=== PATIENT | male | born 1950 | race Native Hawaiian/Other Pacific Islander ===

== ENCOUNTER 2019-11-21 15:28 | Inpatient (IN) | payer MEDICARE, SELFPAY ==
[2019-11-21 15:30] VITALS: BP 171/84; PULSE 100; RESP 18; TEMP 37.1; O2SAT 98; BMI 25.7
[2019-11-21 16:00] VITALS: BP 148/81; PULSE 97; RESP 20; O2SAT 100
--- NOTE | 2019-11-21 16:00 | DI.RAD.S_ITS ---
PROCEDURE: XR FOOT RT MIN 3V INDICATIONS: infection right foot, open area near 4/5 joint. TECHNIQUE: 3 views of the foot were acquired. COMPARISON: None. FINDINGS: Bones: No fractures or dislocations. No suspicious bony lesions. No gross bony erosive changes are seen. Soft tissues: No tibiotalar joint effusion. Achilles tendon appears normal. IMPRESSION: No acute right foot fracture or dislocation. No definite radiographic evidence of osteomyelitis in right foot. No subcutaneous emphysema is seen. Dictated by: Robert Corey M.D. on 11/21/2019 at 16:21 Approved by: Robert Corey M.D. on 11/21/2019 at 16:22
[2019-11-21 16:07] LABS: Add Manual Diff / Slide Review NO; Basophils Absolute Auto 100 /uL (0-100); Basophils Percent Auto 0.6 % (0-2); Eosinophils Absolute Auto 400 /uL (0-450); Eosinophils Percent Auto 2.3 % (2-4); Hematocrit 39.5 % (41-53); Hemoglobin 13.7 g/dL (13.5-17.5); Lymphocytes Absolute Auto 1600 /uL (1100-4500); Lymphocytes Percent Auto 10.6 % (25-40); Mean Corpuscular HGB Conc 34.6 % (30-36); Mean Corpuscular Hemoglobin 30.3 PG (26-34); Mean Corpuscular Volume 87.8 fL (80-100); Monocytes Absolute Auto 2000 /uL (0-900); Monocytes Percent Auto 12.7 % (3-14); Neutrophils Absolute Auto 11400 /uL (1500-7000); Neutrophils Percent Auto 73.8 % (50-75); Platelet Count 274 X10^3/uL (150-400); Red Cell Distribution Width 13.5 % (11.6-14.8); White Blood Cell Count 15.5 X10^3/uL (4.5-11.0)
--- NOTE | 2019-11-21 16:07 | PC.NURSE ---
Pulse obtained right foot with doppler 85 bpm
[2019-11-21 16:10] LABS: INR 1.3 (0.9-1.3); Prothrombin Time 14.5 SECONDS (10.1-12.7)
--- NOTE | 2019-11-21 16:10 | PC.NURSE ---
Significant swelling to right foot up into ankle. Hot/red foot. Patient has an small wound to lateral aspect of fifth toe, wound to top of foot between 4th and 5th toe. reports scratching area as well as being stepped on while on the plane thursday. 85bpm pedal pulse
[2019-11-21 16:12] LABS: PTT Partial Thromboplastin Tim 32 SECONDS (26.4-36.2)
[2019-11-21 16:19] LABS: Lactate (Lactic Acid) 1.3 mmol/L (0.7-2.1)
[2019-11-21 16:20] LABS: Alanine Aminotransferase 46 IU/L (<50); Albumin 4.2 g/dL (3.5-5.0); Alkaline Phosphatase 128 U/L (38-126); Aspartate Aminotransferase 60 IU/L (17-59); BUN Creatinine Ratio 15.6 (6-22); Bilirubin Total 0.9 mg/dL (0.2-1.3); Blood Urea Nitrogen 14 mg/dL (9-20); Calcium 9.3 mg/dL (8.4-10.2); Carbon Dioxide 26 mmol/L (22-32); Chloride 101 mmol/L (98-107); Estimated Glomerular Filt Rate > 60.0 mL/min (>60); Globulin 4.2 g/dL (1.7-4.1); Glucose 132 mg/dL (80-110); HEMOLYSIS 16 (0-50); Lipase 135 U/L (23-300); Potassium 3.6 mmol/L (3.4-5.1); Sodium 138 mmol/L (137-145); Total Protein 8.4 g/dL (6.3-8.2)
[2019-11-21 16:35] LABS: C-Reactive Protein Quant 22.3 mg/dL (<1.0)
[2019-11-21] MEDS: SODIUM CHLORIDE 0.9% 1,000 ML 1000 ML IV (16:39)
--- NOTE | 2019-11-21 16:41 | ED_ITS ---
HPI - Wound/Laceration <PABLO Uribe - Last Filed: 11/21/19 20:18> General Chief Complaint: Wound/Laceration Stated Complaint: SWELLING OF FEET Time Seen by Provider: 11/21/19 15:41 Source: patient and family Mode of arrival: Wheelchair History of Present Illness HPI narrative: 69-year-old male presents to emergency department complaining of right foot swelling, redness, and a wound since Thursday. He states he was in the [facility] and had a foot massage on (patient states they did not cut his nails), Thursday morning he woke up noticing the outer aspect of his right foot was swollen and painful. He thought that he was strain to get gout so he started to take his medication. While he was on the plane he noticed that his foot continued to swell and his toes were rubbing against his slipper, after landing he noticed increased swelling, redness, and a wound to his foot. The wound has been increasingly worse over the past day. He denies any fevers, chills, nausea, vomiting, calf pain, pain in his heel, bug bites, or other concerns. He has not had this happen in the past. He denies any allergies or other medical history other than gout. Denies diabetes. Related Data Home Medications Medication Instructions Recorded Confirmed aspirin 81 mg PO DAILY #0 07/12/06 11/21/19 amlodipine 10 mg PO DAILY 11/21/19 11/21/19 ascorbic acid (vitamin C) 1 tab PO DAILY 11/21/19 11/21/19 vitamin B complex 1 cap PO DAILY 11/21/19 11/21/19 vitamin E 1 cap PO DAILY 11/21/19 11/21/19 Allergies Allergy/AdvReac Type Severity Reaction Status Date / Time No Known Drug Allergies Allergy Verified 11/21/19 16:39 Review of Systems <PABLO Uribe - Last Filed: 11/21/19 20:18> Review of Systems Narrative: REVIEW OF SYSTEMS: GENERAL: Denies fever or chills. HENT: No head trauma. EYES: No double vision or vision loss. CARDIOVASCULAR: No chest pain or syncope. RESPIRATORY: No shortness of breath or cough. GASTROINTESTINAL: No nausea, vomiting, diarrhea, or constipation. GENITOURINARY: No flank pain or dysuria. MUSCULOSKELETAL: Complains of foot pain, see HPI. INTEGUMENTARY: No rash, lesions, or pruritus. NEURO: Complains of increasing redness, swelling, and a wound to right foot. See HPI. PSYCH: No behavior or mood changes. Patient History <PABLO Uribe - Last Filed: 11/21/19 20:18> Medical History Essential hypertension (Chronic) Gout (Acute) Gout (Chronic) History of CVA (cerebrovascular accident) (Acute) Family History Mother Diabetes mellitus Sister Diabetes mellitus Father No significant past medical history Social History household members: family Smoking Status: Never smoker alcohol intake: never Smoking Status: Never smoker alcohol intake frequency: 0-2 drinks per day Substance Use Type: does not use Exam <PABLO Uribe - Last Filed: 11/21/19 20:18> Initial Vital Signs Initial Vital Signs: Vital Signs Temperature 98.8 F 11/21/19 15:30 Pulse Rate 100 H 11/21/19 15:30 Respiratory Rate 18 11/21/19 15:30 Blood Pressure 171/84 H 11/21/19 15:30 Pulse Oximetry 98 11/21/19 15:30 PHYSICAL EXAMINATION: GENERAL: Well groomed, alert, and cooperative. Answers questions promptly and appropriately. Vital signs noted. HENT: Normocephalic, atraumatic. EYES: Symmetrical, sclera white, no periorbital swelling. CARDIOVASCULAR: S1 and S2 sounds normal. Regular rate and rhythm, no murmurs, clicks, or bruits. No pedal edema. RESPIRATORY: Normal respiratory rate, trachea midline, airway patent. No stridor, nasal flaring or accessory muscle use. Lungs are clear in all heard. MUSCULOSKELETAL: Significant erythema and swelling noted to right lateral aspect of foot, there is approximately a 3 cm x 3 cm area of ulceration with white crusting. Peeling/blistering skin noted to the surrounding area. Increasing temp and pain with palp. Pedal pulses 2+ and equal bilaterally. Normal gait and coordination. Equal tone and mass bilaterally. EXTREMITIES: CMS intact. Pedal pulses 2+ and equal bilaterally. SKIN: Warm, dry, soft, appropriate color for ethnicity. No lesions, rashes, or wounds. NEURO: Alert and Oriented X 3. No sensory deficits. PSYCH: Appropriate affect and mood. <Juana Meehan DO - Last Filed: 11/22/19 20:29> Initial Vital Signs Initial Vital Signs: Vital Signs Temperature 98.8 F 11/21/19 15:30 Pulse Rate 100 H 11/21/19 15:30 Respiratory Rate 18 11/21/19 15:30 Blood Pressure 171/84 H 11/21/19 15:30 Pulse Oximetry 98 11/21/19 15:30 Scores <PABLO Uribe - Last Filed: 11/21/19 20:18> qSOFA Altered Mental Status (GCS <15): No Respiratory rate greater than/equal to 22: No Systolic blood pressure less than or equal to 100: No qSOFA Total: 0 0-1 Not High Risk 1-3 High risk SOFA Platelets: >= 150 Bilirubin: < 1.2 mg/dL Hypotension: MAP >= 70 mmHg Eliane Coma Scale: 15 Renal: < 1.2 mg/dL Course <PABLO Uribe - Last Filed: 11/21/19 20:18> Course Course Narrative: Patient was given Toradol for pain, this improved patient comfort. 2 L of normal saline ordered for sepsis protocol. Orders Ordered: Acetaminophen (Tylenol) 650 mg PO Q6HR PRN PRN Reason: Fever/Mild Pain (1-3) Last Admin: 11/21/19 21:14 Dose: 650 mg Documented by: HANNAH Amlodipine Besylate (Norvasc) 10 mg PO DAILY [facility] Last Admin: 11/22/19 10:14 Dose: 10 mg Documented by: SUMMER Aspirin (Aspirin Ec) 81 mg PO DAILY [facility] Last Admin: 11/22/19 10:13 Dose: 81 mg Documented by: SUMMER Enoxaparin Sodium (Lovenox) 40 mg SUBCUT DAILY [facility] Last Admin: 11/22/19 10:17 Dose: 40 mg Documented by: SUMMER Ceftriaxone Sodium/Dextrose (Rocephin) 2 gm in 50 mls @ 100 mls/hr IV Q24H [facility] Last Infusion: 11/22/19 14:05 Dose: 0 mls/hr Documented by: Admin: 11/22/19 10:13 Dose: 100 mls/hr Documented by: SUMMER Vancomycin HCl (Vancomycin) 1,000 mg in 200 mls @ 200 mls/hr IV Q12H [facility] Ketorolac Tromethamine (Toradol) 15 mg IV Q6H PRN PRN Reason: Pain, Moderate (4-6) Stop: 11/27/19 19:23 Morphine Sulfate (Morphine) 2 mg IV Q4HR PRN PRN Reason: Pain, Moderate (4-6) Last Admin: 11/22/19 17:44 Dose: 2 mg Documented by: YESSY Morphine Sulfate (Morphine) 1 mg IV Q4HR PRN PRN Reason: Pain, Moderate (4-6) Ondansetron HCl (Zofran) 4 mg IV Q6HR [facility] Last Admin: 11/22/19 18:43 Dose: Not Given Documented by: Admin: 11/22/19 14:05 Dose: Not Given Documented by: Admin: 11/22/19 06:04 Dose: Not Given Documented by: Admin: 11/22/19 00:00 Dose: Not Given Documented by: NANCY Vancomycin HCl (Vancomycin Trough) 1 request MISC NOW ONE Stop: 11/23/19 22:31 Discontinued Medications Sodium Chloride (Normal Saline 0.9%) 1,000 mls @ 1,000 mls/hr IV BOLUS ONE Stop: 11/21/19 16:58 Last Infusion: 11/21/19 17:53 Dose: 0 mls/hr Documented by: Admin: 11/21/19 16:39 Dose: 1,000 mls/hr Documented by: ADITYA Sodium Chloride (Normal Saline 0.9%) 1,000 mls @ 1,000 mls/hr IV BOLUS ONE Stop: 11/21/19 17:32 Last Admin: 11/21/19 18:24 Dose: Not Given Documented by: JULIENNE Vancomycin HCl (Vancomycin) 1,000 mg in 200 mls @ 200 mls/hr IV NOW ONE Stop: 11/21/19 17:38 Last Infusion: 11/21/19 17:53 Dose: 0 mls/hr Documented by: Admin: 11/21/19 16:47 Dose: 200 mls/hr Documented by: ADITYA Sodium Chloride (Normal Saline 0.45%) 1,000 mls @ 100 mls/hr IV CONT [facility] Stop: 11/22/19 06:29 Last Admin: 11/21/19 21:19 Dose: 100 mls/hr Documented by: HANNAH Ceftriaxone Sodium/Dextrose (Rocephin) 1 gm in 50 mls @ 100 mls/hr IV Q24H [facility] Last Admin: 11/21/19 21:53 Dose: Not Given Documented by: HANNAH Cefazolin Sodium/Dextrose (Ancef) 1 gm in 50 mls @ 200 mls/hr IV Q6H [facility] Last Infusion: 11/22/19 06:20 Dose: 0 mls/hr Documented by: Admin: 11/22/19 06:04 Dose: 200 mls/hr Documented by: Infusion: 11/22/19 00:05 Dose: 0 mls/hr Documented by: Admin: 11/21/19 23:49 Dose: 200 mls/hr Documented by: NANCY Vancomycin HCl (Vancomycin) 1,000 mg in 200 mls @ 200 mls/hr IV Q12H [facility] Last Infusion: 11/22/19 14:05 Dose: 0 mls/hr Documented by: Admin: 11/22/19 11:06 Dose: 200 mls/hr Documented by: SUMMER Influenza Virus Vaccine (Flu Vaccine) 0.5 ml IM .ONCE ONE Stop: 11/21/19 19:30 Last Admin: 11/21/19 21:16 Dose: 0.5 ml Documented by: HANNAH Ketorolac Tromethamine (Toradol) 30 mg IV NOW ONE Stop: 11/21/19 16:45 Last Admin: 11/21/19 16:47 Dose: 30 mg Documented by: ADITYA Vancomycin HCl (Vancomycin Per Pharmacy) 1 [place] [facility] [place] Stop: 11/22/19 07:25 Last Admin: 11/22/19 16:05 Dose: Not Given Documented by: HANNAH Consultations Consultation #1: Patient staffed with Dr. Meehan. Consultation #2: Spoke with Dr. Tsang who accepts patient for inpatient treatment, EKG requested and ordered. Vital Signs Vital signs: Vital Signs - 8 hr 11/21/19 15:30 11/21/19 16:00 Temperature 98.8 F Pulse Rate 100 H 97 H Respiratory Rate 18 20 Blood Pressure 171/84 H Blood Pressure [Left Arm] 148/81 H Pulse Oximetry 98 100 <Juana Meehan, - Last Filed: 11/22/19 20:29> Orders Ordered: Acetaminophen (Tylenol) 650 mg PO Q6HR PRN PRN Reason: Fever/Mild Pain (1-3) Last Admin: 11/21/19 21:14 Dose: 650 mg Documented by: HANNAH Amlodipine Besylate (Norvasc) 10 mg PO DAILY [facility] Last Admin: 11/22/19 10:14 Dose: 10 mg Documented by: SUMMER Aspirin (Aspirin Ec) 81 mg PO DAILY [facility] Last Admin: 11/22/19 10:13 Dose: 81 mg Documented by: SUMMER Enoxaparin Sodium (Lovenox) 40 mg SUBCUT DAILY [facility] Last Admin: 11/22/19 10:17 Dose: 40 mg Documented by: SUMMER Ceftriaxone Sodium/Dextrose (Rocephin) 2 gm in 50 mls @ 100 mls/hr IV Q24H [facility] Last Infusion: 11/22/19 14:05 Dose: 0 mls/hr Documented by: Admin: 11/22/19 10:13 Dose: 100 mls/hr Documented by: SUMMER Vancomycin HCl (Vancomycin) 1,000 mg in 200 mls @ 200 mls/hr IV Q12H [facility] Ketorolac Tromethamine (Toradol) 15 mg IV Q6H PRN PRN Reason: Pain, Moderate (4-6) Stop: 11/27/19 19:23 Morphine Sulfate (Morphine) 2 mg IV Q4HR PRN PRN Reason: Pain, Moderate (4-6) Last Admin: 11/22/19 17:44 Dose: 2 mg Documented by: YESSY Morphine Sulfate (Morphine) 1 mg IV Q4HR PRN PRN Reason: Pain, Moderate (4-6) Ondansetron HCl (Zofran) 4 mg IV Q6HR [facility] Last Admin: 11/22/19 18:43 Dose: Not Given Documented by: Admin: 11/22/19 14:05 Dose: Not Given Documented by: Admin: 11/22/19 06:04 Dose: Not Given Documented by: Admin: 11/22/19 00:00 Dose: Not Given Documented by: NANCY Vancomycin HCl (Vancomycin Trough) 1 [place] [facility] [place] Stop: 11/23/19 22:31 Discontinued Medications Sodium Chloride (Normal Saline 0.9%) 1,000 mls @ 1,000 mls/hr IV BOLUS ONE Stop: 11/21/19 16:58 Last Infusion: 11/21/19 17:53 Dose: 0 mls/hr Documented by: Admin: 11/21/19 16:39 Dose: 1,000 mls/hr Documented by: ADITYA Sodium Chloride (Normal Saline 0.9%) 1,000 mls @ 1,000 mls/hr IV BOLUS ONE Stop: 11/21/19 17:32 Last Admin: 11/21/19 18:24 Dose: Not Given Documented by: JULIENNE Vancomycin HCl (Vancomycin) 1,000 mg in 200 mls @ 200 mls/hr IV NOW ONE Stop: 11/21/19 17:38 Last Infusion: 11/21/19 17:53 Dose: 0 mls/hr Documented by: Admin: 11/21/19 16:47 Dose: 200 mls/hr Documented by: ADITYA Sodium Chloride (Normal Saline 0.45%) 1,000 mls @ 100 mls/hr IV CONT [facility] Stop: 11/22/19 06:29 Last Admin: 11/21/19 21:19 Dose: 100 mls/hr Documented by: HANNAH Ceftriaxone Sodium/Dextrose (Rocephin) 1 gm in 50 mls @ 100 mls/hr IV Q24H [facility] Last Admin: 11/21/19 21:53 Dose: Not Given Documented by: HANNAH Cefazolin Sodium/Dextrose (Ancef) 1 gm in 50 mls @ 200 mls/hr IV Q6H [facility] Last Infusion: 11/22/19 06:20 Dose: 0 mls/hr Documented by: Admin: 11/22/19 06:04 Dose: 200 mls/hr Documented by: Infusion: 11/22/19 00:05 Dose: 0 mls/hr Documented by: Admin: 11/21/19 23:49 Dose: 200 mls/hr Documented by: NANCY Vancomycin HCl (Vancomycin) 1,000 mg in 200 mls @ 200 mls/hr IV Q12H [facility] Last Infusion: 11/22/19 14:05 Dose: 0 mls/hr Documented by: Admin: 11/22/19 11:06 Dose: 200 mls/hr Documented by: SUMMER Influenza Virus Vaccine (Flu Vaccine) 0.5 ml IM .ONCE ONE Stop: 11/21/19 19:30 Last Admin: 11/21/19 21:16 Dose: 0.5 ml Documented by: HANNAH Ketorolac Tromethamine (Toradol) 30 mg IV NOW ONE Stop: 11/21/19 16:45 Last Admin: 11/21/19 16:47 Dose: 30 mg Documented by: ADITYA Vancomycin HCl (Vancomycin Per Pharmacy) 1 request MISC NOW ONE Stop: 11/22/19 07:25 Last Admin: 11/22/19 16:05 Dose: Not Given Documented by: HANNAH Vital Signs Vital signs: Vital Signs - 8 hr 11/21/19 15:30 11/21/19 16:00 Temperature 98.8 F Pulse Rate 100 H 97 H Respiratory Rate 18 20 Blood Pressure 171/84 H Blood Pressure [Left Arm] 148/81 H Pulse Oximetry 98 100 MDM - Wound/Laceration <PABLO Uribe - Last Filed: 11/21/19 20:18> Medical Records Attestation: I reviewed the patient's medical records. Lab Data Attestation: I reviewed the patient's lab results. Result diagrams: 11/22/19 05:15 11/22/19 05:15 Labs: Lab Results 11/21/19 11/21/19 11/21/19 Range/Units 15:55 15:55 15:55 WBC 15.5 H (4.5-11.0) X10^3/uL RBC 4.50 (4.5-5.9) X10^6/uL Hgb 13.7 (13.5-17.5) g/dL Hct 39.5 L (41-53) % MCV 87.8 (80-100) fL MCH 30.3 (26-34) PG MCHC 34.6 (30-36) % RDW 13.5 (11.6-14.8) % Plt Count 274 (150-400) X10^3/uL Neut % (Auto) 73.8 (50-75) % Lymph % (Auto) 10.6 L (25-40) % [place] % (Auto) 12.7 (3-14) % Eos % (Auto) 2.3 (2-4) % Baso % (Auto) 0.6 (0-2) % Neut # (Auto) 43846 H (6021-7560) /uL Lymph # (Auto) 1600 (4601-2145) /uL [place] # (Auto) 2000 H (0-900) /uL Eos # (Auto) 400 (0-450) /uL Baso # (Auto) 100 (0-100) /uL ESR (0-15) MM/HR PT 14.5 H (10.1-12.7) SECONDS INR 1.3 (0.9-1.3) APTT 32 (26.4-36.2) SECONDS Sodium (137-145) mmol/L Potassium (3.4-5.1) mmol/L Chloride (98-107) mmol/L Carbon Dioxide (22-32) mmol/L BUN (9-20) mg/dL Creatinine (0.66-1.25) mg/dL Estimated GFR (>60) mL/min BUN/Creatinine Ratio (6-22) Glucose (80-110) mg/dL Hemoglobin A1c (4.0-6.0) % Lactate (0.7-2.1) mmol/L Calcium (8.4-10.2) mg/dL Total Bilirubin (0.2-1.3) mg/dL AST (17-59) IU/L ALT (<50) IU/L Alkaline Phosphatase (38-126) U/L C-Reactive Protein (<1.0) mg/dL Total Protein (6.3-8.2) g/dL Albumin (3.5-5.0) g/dL Globulin (1.7-4.1) g/dL Albumin/Globulin Ratio (1.0-2.8) Lipase (23-300) U/L Procalcitonin 0.30 (<0.5) ng/mL 11/21/19 11/21/19 11/21/19 Range/Units 15:55 15:55 15:55 WBC (4.5-11.0) X10^3/uL RBC (4.5-5.9) X10^6/uL Hgb (13.5-17.5) g/dL Hct (41-53) % MCV (80-100) fL MCH (26-34) PG MCHC (30-36) % RDW (11.6-14.8) % Plt Count (150-400) X10^3/uL Neut % (Auto) (50-75) % Lymph % (Auto) (25-40) % [place] % (Auto) (3-14) % Eos % (Auto) (2-4) % Baso % (Auto) (0-2) % Neut # (Auto) (3470-1768) /uL Lymph # (Auto) (5107-9069) /uL [place] # (Auto) (0-900) /uL Eos # (Auto) (0-450) /uL Baso # (Auto) (0-100) /uL ESR 70 H (0-15) MM/HR PT (10.1-12.7) SECONDS INR (0.9-1.3) APTT (26.4-36.2) SECONDS Sodium 138 (137-145) mmol/L Potassium 3.6 (3.4-5.1) mmol/L Chloride 101 (98-107) mmol/L Carbon Dioxide 26 (22-32) mmol/L BUN 14 (9-20) mg/dL Creatinine 0.90 (0.66-1.25) mg/dL Estimated GFR > 60.0 (>60) mL/min BUN/Creatinine Ratio 15.6 (6-22) Glucose 132 H (80-110) mg/dL Hemoglobin A1c (4.0-6.0) % Lactate 1.3 (0.7-2.1) mmol/L Calcium 9.3 (8.4-10.2) mg/dL Total Bilirubin 0.9 (0.2-1.3) mg/dL AST 60 H (17-59) IU/L ALT 46 (<50) IU/L Alkaline Phosphatase 128 H (38-126) U/L C-Reactive Protein (<1.0) mg/dL Total Protein 8.4 H (6.3-8.2) g/dL Albumin 4.2 (3.5-5.0) g/dL Globulin 4.2 H (1.7-4.1) g/dL Albumin/Globulin Ratio 1.0 (1.0-2.8) Lipase 135 (23-300) U/L Procalcitonin (<0.5) ng/mL 11/21/19 11/21/19 Range/Units 15:55 15:55 WBC (4.5-11.0) X10^3/uL RBC (4.5-5.9) X10^6/uL Hgb (13.5-17.5) g/dL Hct (41-53) % MCV (80-100) fL MCH (26-34) PG MCHC (30-36) % RDW (11.6-14.8) % Plt Count (150-400) X10^3/uL Neut % (Auto) (50-75) % Lymph % (Auto) (25-40) % [place] % (Auto) (3-14) % Eos % (Auto) (2-4) % Baso % (Auto) (0-2) % Neut # (Auto) (7124-3100) /uL Lymph # (Auto) (9339-4817) /uL [place] # (Auto) (0-900) /uL Eos # (Auto) (0-450) /uL Baso # (Auto) (0-100) /uL ESR (0-15) MM/HR PT (10.1-12.7) SECONDS INR (0.9-1.3) APTT (26.4-36.2) SECONDS Sodium (137-145) mmol/L Potassium (3.4-5.1) mmol/L Chloride (98-107) mmol/L Carbon Dioxide (22-32) mmol/L BUN (9-20) mg/dL Creatinine (0.66-1.25) mg/dL Estimated GFR (>60) mL/min BUN/Creatinine Ratio (6-22) Glucose (80-110) mg/dL Hemoglobin A1c 5.3 (4.0-6.0) % Lactate (0.7-2.1) mmol/L Calcium (8.4-10.2) mg/dL Total Bilirubin (0.2-1.3) mg/dL AST (17-59) IU/L ALT (<50) IU/L Alkaline Phosphatase (38-126) U/L C-Reactive Protein 22.3 H (<1.0) mg/dL Total Protein (6.3-8.2) g/dL Albumin (3.5-5.0) g/dL Globulin (1.7-4.1) g/dL Albumin/Globulin Ratio (1.0-2.8) Lipase (23-300) U/L Procalcitonin (<0.5) ng/mL Imaging Data Extremity x-ray #1: Radiologist's Impression: [place] [address] XRay Report Signed Patient: Chidi Correa BMR#: [id number] : 9Acct:[id number] Age/Sex: 69 / MDate of Service: 11/21/19 Loc: ED Accession Number: [id number] Procedure: XR foot RT min 3V Ordering Provider: Mica Chau PROCEDURE: XR FOOT RT MIN 3V INDICATIONS: infection right foot, open area near 4/5 joint. TECHNIQUE: 3 views of the foot were acquired. COMPARISON: None. FINDINGS: Bones: No fractures or dislocations. No suspicious bony lesions. No gross bony erosive changes are seen. Soft tissues: No tibiotalar joint effusion. Achilles tendon appears normal. IMPRESSION: No acute right foot fracture or dislocation. No definite radiographic evidence of osteomyelitis in right foot. No subcutaneous emphysema is seen. Dictated by: Robert Corey M.D. on 11/21/2019 at 16:21 Approved by: Robert Corey M.D. on 11/21/2019 at 16:22 ECG Data Interpretation: Normal sinus rhythm, rate 85, GA interval 137, QTC 412. No ST elevation or ST depression. No ectopy. EKG read by Dr. Meehan per protocol. [facility] Narrative Medical decision making narrative: 69-year-old male with a history of gout presents emergency department with significant cellulitis to right foot and sepsis. Less concern for osteomyelitis due to lack of concerning findings on x-ray. On sure the exact cause of patient's ulcer and initial wound leading to the cellulitis. Differential for initial also includes insect bite, abrasion to foot, undiagnosed diabetes, MRSA. Wound was swabbed and sent to lab, initial Gram stain showed Gram-positive cocci, vancomycin was started. Patient was admitted to Dr. Tsang as inpatient. Patients LRINEC score is 5 indicating low risk for necrotizing fasciitis. <Juana Meehan, DO - Last Filed: 11/22/19 20:29> Lab Data Attestation: I reviewed the patient's lab results. Labs: Lab Results 11/21/19 11/21/19 11/21/19 Range/Units 15:55 15:55 15:55 WBC 15.5 H (4.5-11.0) X10^3/uL RBC 4.50 (4.5-5.9) X10^6/uL Hgb 13.7 (13.5-17.5) g/dL Hct 39.5 L (41-53) % MCV 87.8 (80-100) fL MCH 30.3 (26-34) PG MCHC 34.6 (30-36) % RDW 13.5 (11.6-14.8) % Plt Count 274 (150-400) X10^3/uL Neut % (Auto) 73.8 (50-75) % Lymph % (Auto) 10.6 L (25-40) % [place] % (Auto) 12.7 (3-14) % Eos % (Auto) 2.3 (2-4) % Baso % (Auto) 0.6 (0-2) % Neut # (Auto) 88840 H (1150-6344) /uL Lymph # (Auto) 1600 (6878-8752) /uL [place] # (Auto) 2000 H (0-900) /uL Eos # (Auto) 400 (0-450) /uL Baso # (Auto) 100 (0-100) /uL ESR (0-15) MM/HR PT 14.5 H (10.1-12.7) SECONDS INR 1.3 (0.9-1.3) APTT 32 (26.4-36.2) SECONDS Sodium (137-145) mmol/L Potassium (3.4-5.1) mmol/L Chloride (98-107) mmol/L Carbon Dioxide (22-32) mmol/L BUN (9-20) mg/dL Creatinine (0.66-1.25) mg/dL Estimated GFR (>60) mL/min BUN/Creatinine Ratio (6-22) Glucose (80-110) mg/dL Hemoglobin A1c (4.0-6.0) % Lactate (0.7-2.1) mmol/L Calcium (8.4-10.2) mg/dL Total Bilirubin (0.2-1.3) mg/dL AST (17-59) IU/L ALT (<50) IU/L Alkaline Phosphatase (38-126) U/L C-Reactive Protein (<1.0) mg/dL Total Protein (6.3-8.2) g/dL Albumin (3.5-5.0) g/dL Globulin (1.7-4.1) g/dL Albumin/Globulin Ratio (1.0-2.8) Lipase (23-300) U/L Procalcitonin 0.30 (<0.5) ng/mL 11/21/19 11/21/19 11/21/19 Range/Units 15:55 15:55 15:55 WBC (4.5-11.0) X10^3/uL RBC (4.5-5.9) X10^6/uL Hgb (13.5-17.5) g/dL Hct (41-53) % MCV (80-100) fL MCH (26-34) PG MCHC (30-36) % RDW (11.6-14.8) % Plt Count (150-400) X10^3/uL Neut % (Auto) (50-75) % Lymph % (Auto) (25-40) % [place] % (Auto) (3-14) % Eos % (Auto) (2-4) % Baso % (Auto) (0-2) % Neut # (Auto) (5052-4963) /uL Lymph # (Auto) (6615-5452) /uL [place] # (Auto) (0-900) /uL Eos # (Auto) (0-450) /uL Baso # (Auto) (0-100) /uL ESR 70 H (0-15) MM/HR PT (10.1-12.7) SECONDS INR (0.9-1.3) APTT (26.4-36.2) SECONDS Sodium 138 (137-145) mmol/L Potassium 3.6 (3.4-5.1) mmol/L Chloride 101 (98-107) mmol/L Carbon Dioxide 26 (22-32) mmol/L BUN 14 (9-20) mg/dL Creatinine 0.90 (0.66-1.25) mg/dL Estimated GFR > 60.0 (>60) mL/min BUN/Creatinine Ratio 15.6 (6-22) Glucose 132 H (80-110) mg/dL Hemoglobin A1c (4.0-6.0) % Lactate 1.3 (0.7-2.1) mmol/L Calcium 9.3 (8.4-10.2) mg/dL Total Bilirubin 0.9 (0.2-1.3) mg/dL AST 60 H (17-59) IU/L ALT 46 (<50) IU/L Alkaline Phosphatase 128 H (38-126) U/L C-Reactive Protein (<1.0) mg/dL Total Protein 8.4 H (6.3-8.2) g/dL Albumin 4.2 (3.5-5.0) g/dL Globulin 4.2 H (1.7-4.1) g/dL Albumin/Globulin Ratio 1.0 (1.0-2.8) Lipase 135 (23-300) U/L Procalcitonin (<0.5) ng/mL 11/21/19 11/21/19 Range/Units 15:55 15:55 WBC (4.5-11.0) X10^3/uL RBC (4.5-5.9) X10^6/uL Hgb (13.5-17.5) g/dL Hct (41-53) % MCV (80-100) fL MCH (26-34) PG MCHC (30-36) % RDW (11.6-14.8) % Plt Count (150-400) X10^3/uL Neut % (Auto) (50-75) % Lymph % (Auto) (25-40) % [place] % (Auto) (3-14) % Eos % (Auto) (2-4) % Baso % (Auto) (0-2) % Neut # (Auto) (5075-9098) /uL Lymph # (Auto) (1118-5847) /uL [place] # (Auto) (0-900) /uL Eos # (Auto) (0-450) /uL Baso # (Auto) (0-100) /uL ESR (0-15) MM/HR PT (10.1-12.7) SECONDS INR (0.9-1.3) APTT (26.4-36.2) SECONDS Sodium (137-145) mmol/L Potassium (3.4-5.1) mmol/L Chloride (98-107) mmol/L Carbon Dioxide (22-32) mmol/L BUN (9-20) mg/dL Creatinine (0.66-1.25) mg/dL Estimated GFR (>60) mL/min BUN/Creatinine Ratio (6-22) Glucose (80-110) mg/dL Hemoglobin A1c 5.3 (4.0-6.0) % Lactate (0.7-2.1) mmol/L Calcium (8.4-10.2) mg/dL Total Bilirubin (0.2-1.3) mg/dL AST (17-59) IU/L ALT (<50) IU/L Alkaline Phosphatase (38-126) U/L C-Reactive Protein 22.3 H (<1.0) mg/dL Total Protein (6.3-8.2) g/dL Albumin (3.5-5.0) g/dL Globulin (1.7-4.1) g/dL Albumin/Globulin Ratio (1.0-2.8) Lipase (23-300) U/L Procalcitonin (<0.5) ng/mL ECG Data Attestation: I personally reviewed and interpreted this ECG as follows: Interpretation: Sinus rhythm rate 85 P are 137 QRS 89 and QTC of 412. Nonspecific change. MDM Narrative Medical decision making narrative: Patient was seen by myself patient appears to have open wound with cellulitis. Unclear sick potentially of osteomyelitis but per patient has been a very short onset. He does not have a large fluid collection that appears to be easily drained. Does have quite a bit of swelling ulceration and skin breakdown closed the 5th metatarsal with erythema tracking up the ankle. Patient does meet septic criteria of heart rate initially 100 and white count 15. He has been afebrile in the department. We discussed would be appropriate keep patient for IV antibiotics and close evaluation ESR and CRP are also both elevated. Initial x-ray is negative for any changes to the bone there's no free air. Discharge Plan Departure Patient Disposition: Admitted As Inpatient Clinical Impression: Cellulitis Qualifiers: Site of cellulitis: extremity Site of cellulitis of extremity: lower extremity Laterality: right Qualified Code(s): L03.115 - Cellulitis of right lower limb Sepsis Qualifiers: Sepsis type: sepsis due to unspecified organism Sepsis acute organ dysfunction status: without acute organ dysfunction Qualified Code(s): A41.9 - Sepsis, unspecified organism Discharge Date/Time: 11/21/19 19:02 Admit Date/Time: 11/21/19 17:44 Admit Provider: Josefina Tsang
[2019-11-21 16:42] LABS: Erythrocyte Sedimentation Rate 70 MM/HR (0-15)
[2019-11-21] MEDS: KETOROLAC 60 MG/2 ML VIAL 30 MG IV (16:47)
[2019-11-21] MEDS: VANCOMYCIN 1,000 MG/200 ML PIGGYBACK 200 MG IV (16:47)
[2019-11-21 17:45] VITALS: BP 152/82; PULSE 81; O2SAT 98
[2019-11-21 18:00] VITALS: BP 142/78; PULSE 74; RESP 18; O2SAT 96
[2019-11-21 18:55] VITALS: BMI 26.2
[2019-11-21 19:18] VITALS: BP 158/91; PULSE 90; RESP 20; TEMP 36.8; O2SAT 99
[2019-11-21 20:47] LABS: Hemoglobin A1C% w Est Avg Glu 5.3 % (4.0-6.0)
[2019-11-21] MEDS: ACETAMINOPHEN 325 MG TABLET 650 MG PO (21:14)
[2019-11-21] MEDS: INFLUENZA VACCINE 0.5 ML SYRINGE IM (21:16)
[2019-11-21] MEDS: SODIUM CHLORIDE 0.45% 1,000 ML 100 ML IV (21:19)
--- NOTE | 2019-11-21 21:27 | P.HP_ITS ---
History of Present Illness History of Present Illness Date Patient Seen: 11/21/19 Time Patient Seen: 20:15 Chief complaint: SWELLING OF FEET Narrative: Chidi Correa is [facility] 69 [facility] with history of hypertension and gout presented with a chief complaint of a sore and swollen foot. He is a difficult historian due to a language barrier and CARLA Singer and his niece and nephew assist in providing a history. Patient was in the [facility] when a w sitka prior to arrival, he was scratching his right foot. Approximately a week later while still [place], he developed chills. He departed on a flight to the and had his foot in the aisle when a passenger stepped on his foot. He and his family members put an over the counter antibiotic ointment on it and when it did not improve, he presented to the ED. He denies current fever or chills, headache, shortness of breath, chest pain, nausea or vomiting, abdominal pain, dysuria, diarrhea, constipation or numbing or tingling of his extremities. He does state he has full sensation of the bottoms of his feet. Patient has been travelling from [place], the [facility] to and from the [facility] and had a PCP from [facility]. He takes amlodipine and it is not clear if he was prescribed it from either [place] or the [facility]. Patient History Medical History (Updated 11/21/19 @ 22:11 by PABLO Contreras) Essential hypertension (Chronic) Gout (Acute) Gout (Chronic) Family & Social History Family History (Updated 11/21/19 @ 22:12 by PABLO Contreras) Mother Diabetes mellitus Sister Diabetes mellitus Father No significant past medical history Social History: household members family Prior Living Arrangements House Safety & Behavioral: Feels Safe in Current Yes Environment Been Physically Hurt or No Threatened By a Person Suicidal Ideation Description None Suicide Plan Description No Plan Tobacco & Substance use: Smoking Status Never smoker alcohol intake never alcohol intake frequency 0-2 drinks per day Substance Use Type does not use Meds Home Medications and Allergies Home Medications Medication Instructions Recorded Confirmed Type aspirin 81 mg PO DAILY #0 07/12/06 11/21/19 History amlodipine 10 mg PO DAILY 11/21/19 11/21/19 History ascorbic acid (vitamin C) 1 tab PO DAILY 11/21/19 11/21/19 History vitamin B complex 1 cap PO DAILY 11/21/19 11/21/19 History vitamin E 1 cap PO DAILY 11/21/19 11/21/19 History Allergies Allergy/AdvReac Type Severity Reaction Status Date / Time No Known Drug Allergies Allergy Verified 11/21/19 16:39 Review of Systems Review of Systems Narrative: All systems reviewed and are negative except as noted in the HPI. Exam Vital Signs (past 8 hours): - 11/21/19 15:30 11/21/19 16:00 11/21/19 17:45 Temperature 98.8 F Pulse Rate 100 H 97 H 81 Respiratory Rate 18 20 Blood Pressure 171/84 H Blood Pressure [Left Arm] 148/81 H 152/82 H Pulse Oximetry 98 100 98 11/21/19 18:00 11/21/19 19:18 Temperature 98.3 F Pulse Rate 74 90 Respiratory Rate 18 20 Blood Pressure 158/91 H Blood Pressure [Left Arm] 142/78 H Pulse Oximetry 96 99 Oxygen Delivery Method Room Air Narrative Exam Narrative: Gen: Alert, oriented, well-developed 69 y.o. [place] male, well nourished HEENT: normocephalic, atraumatic, conjunctiva clear, sclera non-icteric, oral mucosa pink and moist Neck: supple, full ROM Resp: Lungs CTA, non-labored breathing CV: RRR, no murmur or rubs Abd: soft, non-tender, normoactive BTs Skin: Right foot with +2 non-pitting edema, open puncture wounds of the dorsal aspect of his little and second toes draining purulent exudate (see photo taken by nurse coordinator). Evidence of ruptured blistering surrounding the larger wound Neuro: Alert and oriented X 4 w/no focal deficits Extremities: moves all 4 extremities, is ambulatory, negative Kevin?s sign Psyche: normal mood and affect. Objective Labs Result Diagrams: 11/21/19 15:55 11/21/19 15:55 Labs: Laboratory Results - last 24 hr 11/21/19 11/21/19 11/21/19 15:55 15:55 15:55 WBC 15.5 H RBC 4.50 Hgb 13.7 Hct 39.5 L MCV 87.8 MCH 30.3 MCHC 34.6 RDW 13.5 Plt Count 274 Neut % (Auto) 73.8 Lymph % (Auto) 10.6 L [place] % (Auto) 12.7 Eos % (Auto) 2.3 Baso % (Auto) 0.6 Neut # (Auto) 63507 H Lymph # (Auto) 1600 [place] # (Auto) 2000 H Eos # (Auto) 400 Baso # (Auto) 100 ESR PT 14.5 H INR 1.3 APTT 32 Sodium Potassium Chloride Carbon Dioxide BUN Creatinine Estimated GFR BUN/Creatinine Ratio Glucose Hemoglobin A1c Lactate Calcium Total Bilirubin AST ALT Alkaline Phosphatase C-Reactive Protein Total Protein Albumin Globulin Albumin/Globulin Ratio Lipase Procalcitonin 0.30 11/21/19 11/21/19 11/21/19 15:55 15:55 15:55 WBC RBC Hgb Hct MCV MCH MCHC RDW Plt Count Neut % (Auto) Lymph % (Auto) [place] % (Auto) Eos % (Auto) Baso % (Auto) Neut # (Auto) Lymph # (Auto) [place] # (Auto) Eos # (Auto) Baso # (Auto) ESR 70 H PT INR APTT Sodium 138 Potassium 3.6 Chloride 101 Carbon Dioxide 26 BUN 14 Creatinine 0.90 Estimated GFR > 60.0 BUN/Creatinine Ratio 15.6 Glucose 132 H Hemoglobin A1c Lactate 1.3 Calcium 9.3 Total Bilirubin 0.9 AST 60 H ALT 46 Alkaline Phosphatase 128 H C-Reactive Protein Total Protein 8.4 H Albumin 4.2 Globulin 4.2 H Albumin/Globulin Ratio 1.0 Lipase 135 Procalcitonin 11/21/19 11/21/19 15:55 15:55 WBC RBC Hgb Hct MCV MCH MCHC RDW Plt Count Neut % (Auto) Lymph % (Auto) [place] % (Auto) Eos % (Auto) Baso % (Auto) Neut # (Auto) Lymph # (Auto) [place] # (Auto) Eos # (Auto) Baso # (Auto) ESR PT INR APTT Sodium Potassium Chloride Carbon Dioxide BUN Creatinine Estimated GFR BUN/Creatinine Ratio Glucose Hemoglobin A1c 5.3 Lactate Calcium Total Bilirubin AST ALT Alkaline Phosphatase C-Reactive Protein 22.3 H Total Protein Albumin Globulin Albumin/Globulin Ratio Lipase Procalcitonin Assessment & Plan Assessment & Plan narrative: Chidi Correa will be admitted to the inpatient service for managment and treatment of a right lower foot cellulitus. 1. Right foot cellulitis, acute, present on admission * Blood cultures have been drawn and are pending * He received a one-time dose of IV vancomycin in the ED * He will receive IV Ceftriaxone 2 grams daily * Monitor for fever * Daily CBC to monitor elevated WBC * If no improvement consider CT or MRI of his foot and/or surgical consult. These have not been ordered. 2. Essential hypertension, chronic, present on admission * Continue home dose of amlodipine 10 mg po daily * Continue home dose of aspirin 81 mg po daily 3. Hyperglycemia w/out a diagnosis of diabetes with a random glucose of 132, present on admission * Patient's A1c was 5.3 * Elevated glucose likely stress induced FEN: 0.45 NS at 100 ml/hour X 1L , heart healthy diet, chemistries in the am Patient is admitted inpatient his is likely to exceed 2 midnights. VTE Prophylaxis: enoxaparin 40 mg subQ daily Medications reconciled: yes Disposition: Probable discharge to home Code Status: Full code Quality VTE Deep Vein Thrombosis/Pulmonary Embolism Present on Admission: No
[2019-11-21] MEDS: CEFAZOLIN 1 GM/50 ML FROZ.PIGGY IV (23:49)
[2019-11-21 23:50] VITALS: BP 155/96; PULSE 91; RESP 18; TEMP 37.6; O2SAT 98
[2019-11-22 05:22] VITALS: BP 150/89; PULSE 101; RESP 18; TEMP 37.2; O2SAT 97
[2019-11-22 05:43] LABS: Add Manual Diff / Slide Review NO; Basophils Absolute Auto 0 /uL (0-100); Basophils Percent Auto 0.3 % (0-2); Eosinophils Absolute Auto 400 /uL (0-450); Eosinophils Percent Auto 3.3 % (2-4); Hematocrit 39.5 % (41-53); Hemoglobin 13.5 g/dL (13.5-17.5); Lymphocytes Absolute Auto 1500 /uL (1100-4500); Lymphocytes Percent Auto 11.7 % (25-40); Mean Corpuscular HGB Conc 34.1 % (30-36); Mean Corpuscular Hemoglobin 30.3 PG (26-34); Mean Corpuscular Volume 88.8 fL (80-100); Monocytes Absolute Auto 1200 /uL (0-900); Monocytes Percent Auto 9.3 % (3-14); Neutrophils Absolute Auto 9700 /uL (1500-7000); Neutrophils Percent Auto 75.4 % (50-75); Platelet Count 269 X10^3/uL (150-400); Red Blood Cell Count 4.45 X10^6/uL (4.5-5.9); Red Cell Distribution Width 13.5 % (11.6-14.8); White Blood Cell Count 12.8 X10^3/uL (4.5-11.0)
[2019-11-22 05:54] LABS: BUN Creatinine Ratio 13.3 (6-22); Blood Urea Nitrogen 12 mg/dL (9-20); Calcium 8.7 mg/dL (8.4-10.2); Carbon Dioxide 26 mmol/L (22-32); Chloride 103 mmol/L (98-107); Cholesterol 188 mg/dL (140-199); Estimated Glomerular Filt Rate > 60.0 mL/min (>60); Glucose 104 mg/dL (80-110); HDL Cholesterol 26 mg/dL (40-60); HEMOLYSIS < 15 (0-50); LDL Cholesterol Calculated 145 mg/dL (<100); Potassium 3.7 mmol/L (3.4-5.1); Sodium 138 mmol/L (137-145); Triglycerides 86 mg/dL (35-150)
[2019-11-22] MEDS: CEFAZOLIN 1 GM/50 ML FROZ.PIGGY IV (06:04)
--- NOTE | 2019-11-22 07:25 | DI.US.S_ITS ---
PROCEDURE: US PERIPH VENOUS LOW EXTREM BI INDICATIONS: r/o DVT TECHNIQUE: Real-time imaging, as well as color and pulse Doppler interrogation, were performed of the deep veins of both legs from the inguinal ligament to the popliteal fossa. COMPARISON: None. FINDINGS: Right: The common femoral, femoral and popliteal veins are normally compressible, and free of intraluminal thrombus. Color and pulse Doppler demonstrate normal phasic intravascular flow. There is normal augmentation response to distal compression maneuver. Left: The common femoral, femoral and popliteal veins are normally compressible, and free of intraluminal thrombus. Color and pulse Doppler demonstrate normal phasic intravascular flow. There is normal augmentation response to distal compression maneuver. IMPRESSION: No evidence of DVT in visualized bilateral lower extremity veins. Dictated by: Robert Corey M.D. on 11/22/2019 at 10:00 Approved by: Robert Corey M.D. on 11/22/2019 at 10:00
[2019-11-22 08:37] LABS: Magnesium 2.1 mg/dL (1.6-2.3)
[2019-11-22 09:00] VITALS: BP 151/89; PULSE 85; RESP 18; TEMP 37.3; O2SAT 97
[2019-11-22] MEDS: ASPIRIN EC 81 MG TABLET PO (10:13)
[2019-11-22] MEDS: CEFTRIAXONE 2 GM/50 ML FROZ.PIGGY IV (10:13)
[2019-11-22] MEDS: AMLODIPINE 5 MG TABLET 10 MG PO (10:14)
[2019-11-22] MEDS: ENOXAPARIN 40 MG/0.4 ML SYRINGE SUBCUT (10:17)
--- NOTE | 2019-11-22 10:57 | PC.NURSE ---
Pts lower foot and ankle with redness and is warm to touch. He is able to ambulate to the bathroom and has already had a bowel movement and voided. Area to two last toes wheepy with sangenous drainage. He denies pain. Patient states that he [facility] but is here visiting family. IV antibiotics infusing now.
[2019-11-22] MEDS: VANCOMYCIN 1,000 MG/200 ML PIGGYBACK 200 MG IV ×2 (11:06→23:27)
[2019-11-22 13:00] VITALS: BP 147/86; PULSE 93; RESP 16; TEMP 36.7; O2SAT 96
--- NOTE | 2019-11-22 15:06 | CM.DANOTE ---
Discharge Planning/Care Management DCP: assessment: case received, EMR reviewed and met with pt. Introduced self and role. Pt's primary language is noted to be Tagalog but RUFINO Wheeler had confirmed that pt is able to communicate well in Setswana and pt confirms same to this d/c case planner. Pt is a 69 year old male who admitted to care of the hospitalist team last evening. He is currently staying with family in [place] (see DCP template info below) and plans to be there for a couple of months. Payer: Medicare A&B Admission status: INPT: per [facility] RUFINO Diggs. PCP: infomation re this seems a bit complex. Pt basically states that he sees a physician where ever he is when he needs it. He says the last time he was seen at was in 2007. His current medication was prescribed in [place]. He was visiting family there before coming to [place]. It is doubtful that pt will be in one place long enough to establish care with a PCP: perhaps going to Urgent Care clinics would be most appropriate.. DCP team will be following as POC unfolds to assist with d/c needs as these arise. Did put a call into family member: Abimael Correa: [phone] and marimar jordan left with request for a call back to help in the d/c planning assessment process. CM Discharge Assessment Start: 11/22/19 14:59 Freq: Status: Active Protocol: Document 11/22/19 15:00 ITV (Rec: 11/22/19 15:06 ITV [id number]) Discharge Planning Assessment Advance Directives? No Advance Directives on File No History Provided By Patient,Medical Record Prior Living Arrangements House Comment pt does alot of traveling to see family members. Recently returned from a visit to the [facility]. DCPines. Household Members family Comment currently staying with family: son and niece: in [place]. The family have plans to travel to [place] to see another family member who is graduating from a program. Independent with ADL's Yes Is patient alert and oriented? Yes Whiteboard Updated in Patient Room with Yes name and ext. # of Tester Electronic Scale Review Status In Process
[2019-11-22 15:34] VITALS: BP 154/90; PULSE 81; RESP 18; TEMP 36.8; O2SAT 98
--- NOTE | 2019-11-22 16:40 | P.PN_ITS ---
Subjective Subjective Date Patient Seen: 11/22/19 Interval history: Chidi Correa is a 69-year-old [place] male with a past medical history significant for hypertension and gout who presented with progressive worsening foot infection. The patient speaks very little Romanian, therefore, the community support worker, Amirah Miranda, helped with translation. The patient reports that 4 days ago on 11/17/2019 he received a foot massage in the [facility]. His foot became slightly erythematous with discomfort the next morning and he felt as though he may be having a gouty attack so he started anti-inflammatories. [place] and his foot has become progressively more erythematous, edematous, warm and painful prompting him to be seen in the ED. He reports that his fever and chills have resolved. He endorses discomfort in his foot that he rates a +4/10 in severity and is aching in quality. He is unable to move his 4th and 5th metatarsal but does not have significant pain with passive or active range of motion. Concerned for abscess as patient has an area of induration with fluctuance, purulent drainage, and significant edema with slight necrotic appearing tissue and will plan to consult General surgery and/or Orthopedic surgery. He has no other complaints and denies headache, chest pain, shortness of breath, abdominal pain, nausea, vomiting, fever, chills, dysuria, diarrhea constipation. The patient is voiding and eliminating without difficulty. Exam Vital Signs (past 8 hours): - 11/22/19 09:00 11/22/19 13:00 11/22/19 15:34 Temperature 99.1 F 98.1 F 98.2 F Pulse Rate 85 93 H 81 Respiratory Rate 18 16 18 Blood Pressure 151/89 H 147/86 H 154/90 H Pulse Oximetry 97 96 98 Oxygen Delivery Method Room Air Oxygen Flow Rate 0 Narrative Exam Narrative: General: Older gentleman sitting in bed and in no acute distress, appears younger than stated age, well-developed, well-nourished, appropriately interactive. HEENT: Normocephalic, atraumatic. External ears without defect. Pupils equal, round, and reactive to light. Anicteric sclerae, moist conjunctivae, and no lid lag. Neck: Supple with full range of motion. No lymphadenopathy or thyromegaly. Cardiovascular: Regular rate and rhythm without murmurs, rubs, or gallops appreciated. Pulmonary: Clear to auscultation bilaterally without crackles, wheezes, or rhonchi. Normal respiratory effort with no use of accessory muscles. Abdomen: Soft, bowel sounds present, nontender, nondistended. No hepatosplenome marilin or masses appreciated. Extremities: No clubbing or cyanosis of bilateral lower extremities. Right foot with area of induration, fluctuance, purulent drainage, erythema, edema, and warmth around the 4th and 5th metatarsal. Patient unable to move 4th and 5th metatarsal likely due to edema. No significant pain with passive or active range of motion of 4th and 5th metatarsal. Skin: Normal temperature, turgor, and texture; no rash, ulcers, or subcutaneous nodules appreciated. Neurological: Cranial nerves grossly intact. Psychiatric: Normal mood and affect. Alert and oriented to person, place, and time. Objective Labs Result Diagrams: 11/22/19 05:15 11/22/19 05:15 Labs: Laboratory Results - last 24 hr 11/21/19 11/21/19 11/21/19 15:55 15:55 15:55 WBC RBC Hgb Hct MCV MCH MCHC RDW Plt Count Neut % (Auto) Lymph % (Auto) [place] % (Auto) Eos % (Auto) Baso % (Auto) Neut # (Auto) Lymph # (Auto) [place] # (Auto) Eos # (Auto) Baso # (Auto) ESR 70 H Sodium Potassium Chloride Carbon Dioxide BUN Creatinine Estimated GFR BUN/Creatinine Ratio Glucose Hemoglobin A1c 5.3 Calcium Magnesium Triglycerides Cholesterol LDL Cholesterol, Calc HDL Cholesterol Procalcitonin 0.30 Nasal Screen MRSA (PCR) 11/22/19 11/22/19 11/22/19 05:15 05:15 05:38 WBC 12.8 H RBC 4.45 L Hgb 13.5 Hct 39.5 L MCV 88.8 MCH 30.3 MCHC 34.1 RDW 13.5 Plt Count 269 Neut % (Auto) 75.4 H Lymph % (Auto) 11.7 L [place] % (Auto) 9.3 Eos % (Auto) 3.3 Baso % (Auto) 0.3 Neut # (Auto) 9700 H Lymph # (Auto) 1500 [place] # (Auto) 1200 H Eos # (Auto) 400 Baso # (Auto) 0 ESR Sodium 138 Potassium 3.7 Chloride 103 Carbon Dioxide 26 BUN 12 Creatinine 0.90 Estimated GFR > 60.0 BUN/Creatinine Ratio 13.3 Glucose 104 Hemoglobin A1c Calcium 8.7 Magnesium Triglycerides 86 Cholesterol 188 LDL Cholesterol, Calc 145 H HDL Cholesterol 26 L Procalcitonin 0.30 Nasal Screen MRSA (PCR) 11/22/19 11/22/19 05:38 14:41 WBC RBC Hgb Hct MCV MCH MCHC RDW Plt Count Neut % (Auto) Lymph % (Auto) [place] % (Auto) Eos % (Auto) Baso % (Auto) Neut # (Auto) Lymph # (Auto) [place] # (Auto) Eos # (Auto) Baso # (Auto) ESR Sodium Potassium Chloride Carbon Dioxide BUN Creatinine Estimated GFR BUN/Creatinine Ratio Glucose Hemoglobin A1c Calcium Magnesium 2.1 Triglycerides Cholesterol LDL Cholesterol, Calc HDL Cholesterol Procalcitonin Nasal Screen MRSA (PCR) Negative for mrsa Assessment & Plan Assessment & Plan narrative: Chidi Correa is a 69-year-old [place] male with a past medical history significant for hypertension and gout who presented with progressive worsening foot infection. 1. Acute right foot abscess with cellulitis, present on admission. Active. -Patient presented after foot massage in the [facility] with progressive worsening right foot erythema, edema, and pain with associated fevers and chills . -Right foot x-ray did not demonstrate any acute fracture or dislocation. No definite radiographic evidence of osteomyelitis in right foot. No subcutaneous emphysema is seen. -Bilateral lower extremity Doppler ultrasound negative for DVT. -Ordered CT with contrast of right lower extremity, pending -Blood cultures x2 have no growth to date. -Wound culture obtained in the ED preliminarily growing staph aureus with sensitivities to follow. MRSA screen negative. -Initial WBC 15.5 and procalcitonin 0.30. WBC trending down now 12.8 and procalcitonin stable at 0.30. Continue to trend WBC and procalcitonin daily. -ESR elevated at 70 and CRP elevated at 22.3. -Received vancomycin with dosing per pharmacist and ceftriaxone 2 g IV x1 in ED. Continue vancomycin with dosing per pharmacist and ceftriaxone 2 g IV daily. -Consulted orthopedic surgery, Dr. Corona, for evaluation and treatment. Dr. Farnsworth performed I&D at bedside and will plan to perform I&D and washout tomorrow morning when patient has been NPO. Patient is NPO at midnight. We appreciate her time and care of the patient. 2. Hypertension, chronic, present on admission. Stable. -Continue home amlodipine 10 mg daily and aspirin 81 mg daily. 3. Gout, chronic, present on admission. Stable. -Patient is not on uric acid lowering medication. -Ordered uric acid level, pending. 4. Diabetes mellitus ruled out. -Hemoglobin A1c 5.3%. Code status: Full code VTE Prophylaxis: Lovenox Disposition: Patient likely to discharge home in several days once right foot abscess has been surgically addressed and infection is improving. Quality VTE Deep Vein Thrombosis/Pulmonary Embolism Present on Admission: No
--- NOTE | 2019-11-22 17:34 | DI.CT.S_ITS ---
PROCEDURE: CT LE RT W CON INDICATIONS: increased swelling/purulence TECHNIQUE: After the administration of intravenous contrast, 3 mm axial sections acquired of the right foot, with coronal and sagittal reformats. COMPARISON: None. FINDINGS: Image quality: Excellent. Bones: There may be subtle cortical thinning along the dorsal aspect of the fifth proximal phalanx at the MTP joint. No definite periostitis. No joint space widening. No acute fractures. Soft tissues: There is irregular fluid collection with questionable peripheral enhancement along the dorsal aspect of the distal forefoot overlying the fourth and fifth metatarsals and extending into the web space between the fourth and fifth digits. This also extends lateral to the fifth metatarsal phalangeal joint. The proximal extent is about half way up the fifth metatarsal. The overlying skin is irregular and there may be pustule or open sore. The skin over the dorsum of the foot appears moderately thickened. The depth of the fluid collection is about 1.9 cm maximally. Transverse diameter is approximately 3.4 cm. In the proximal to distal direction it measures around 6.1 cm. No subcutaneous emphysema. IMPRESSION: 1. There is a fluid collection along the dorsal aspect of the lateral and distal forefoot, mainly overlying the fifth metatarsal phalangeal joint extending between the fourth and fifth digit webspace. Slight peripheral enhancement is suspicious for an abscess although sterile fluid collection also have this appearance. Aspiration is recommended if not previously performed. There is no joint space widening to suggest this directly involves the joint at this point, but septic arthritis cannot be excluded. 2. There is questionable, subtle cortical thinning along the dorsal aspect of the fifth proximal phalanx, however there are no secondary signs to suggest osteomyelitis. MRI is more sensitive if patient is able to undergo this study. Alternatively, cortical erosive changes can be followed by radiographs. Dictated by: Suzanne Winter M.D. on 11/22/2019 at 18:41 Approved by: Suzanne Winter M.D. on 11/22/2019 at 18:52
[2019-11-22] MEDS: MORPHINE 2 MG/ML INJ IV ×2 (17:44→21:08)
--- NOTE | 2019-11-22 18:38 | PM.CN ---
History of Present Illness Consult details Date Patient Seen: 11/22/19 Time Patient Seen: 18:38 Chief complaint: SWELLING OF FEET Reason for consult: Swelling of foot abscess Requesting provider: Josefina Mehta Narrative: Patient is a 69-year-old male with a right dorsal lateral foot swelling pain drainage an abscess. The patient does not have a history of diabetes. He does have a history of being in the [facility] last week where he received massage and states he may have had some pain afterwards. He denies any known cuts or lacerations. He states he did have some itching in that area which she did scratch. The following day he was on the airplane and had someone stepped on his foot which did cause excruciating pain to him but he denies any break in the skin. Over the last few days he has had increased pain swelling and redness over the dorsum of his 4th and 5th toes and presented to the ER with cellulitis. He received IV antibiotics in the hospital overnight. When handoff was done today to the internal medicine doctor it was noted that the patient's appearance was concerning for abscess. Surgical consult were called 1st to general surgery which then later directed to orthopedic surgery. I was asked to come see the patient by Dr. Chao and Dr. mehta. When I arrived to the hospital I was met by Dr. hamilton and Dr. contreras from wound care would also evaluated the patient and thought that he would require an irrigation and debridement. At the time of my evaluation the patient was not NPO he was currently eating a meal ball sub sandwich and had dinner at bedside which was mostly consumed. Patient endorsed pain and swelling at his right foot. He denied any other injuries. He had been on broad-spectrum antibiotics and a culture had been taken in the ER which was returning Staph. He denies any history of neuropathy or circulation problems. He did have a Doppler scan in the ED that was negative for DVT. Meds Home Medications and Allergies Home Medications Medication Instructions Recorded Confirmed Type aspirin 81 mg PO DAILY #0 07/12/06 11/21/19 History amlodipine 10 mg PO DAILY 11/21/19 11/21/19 History ascorbic acid (vitamin C) 1 tab PO DAILY 11/21/19 11/21/19 History vitamin B complex 1 cap PO DAILY 11/21/19 11/21/19 History vitamin E 1 cap PO DAILY 11/21/19 11/21/19 History Allergies Allergy/AdvReac Type Severity Reaction Status Date / Time No Known Drug Allergies Allergy Verified 11/21/19 16:39 Review of Systems Review of Systems ROS Unobtainable: All systems reviewed & are unremarkable except as noted in HPI and below Exam Vital Signs (past 8 hours): - 11/22/19 13:00 11/22/19 15:34 Temperature 98.1 F 98.2 F Pulse Rate 93 H 81 Respiratory Rate 16 18 Blood Pressure 147/86 H 154/90 H Pulse Oximetry 96 98 Oxygen Delivery Method Room Air Oxygen Flow Rate 0 Narrative Exam Narrative: General exam alert oriented male in no acute distress lying in bed. Normal affect HEENT exam normocephalic atraumatic Respiratory exam unlabored on room air lungs clear to auscultation CV exam regular rate and rhythm Abdominal exam is soft Extremity examination moving bilateral upper extremities full range of motion no wounds or lesions. Sensation intact to light touch Lower extremities right lower extremities evaluated there is a abscess with fluctuance and the scant drainage and blistering at the fourth-fifth web space with some superficial blistering over the 5th toe. Brisk capillary refill to the toes. Does slight movement but endorses pain. No erythema tracking up above the ankle. Patient does have a fullness over the dorsum of the foot in line with the 4th and 5th metatarsals and tenderness to palpation. Sensation grossly intact to light touch. Calf is soft. Objective Labs Result Diagrams: 11/22/19 05:15 11/22/19 05:15 Labs: Laboratory Results - last 24 hr 11/21/19 11/21/19 11/22/19 15:55 15:55 05:15 WBC 12.8 H RBC 4.45 L Hgb 13.5 Hct 39.5 L MCV 88.8 MCH 30.3 MCHC 34.1 RDW 13.5 Plt Count 269 Neut % (Auto) 75.4 H Lymph % (Auto) 11.7 L [place] % (Auto) 9.3 Eos % (Auto) 3.3 Baso % (Auto) 0.3 Neut # (Auto) 9700 H Lymph # (Auto) 1500 [place] # (Auto) 1200 H Eos # (Auto) 400 Baso # (Auto) 0 Sodium Potassium Chloride Carbon Dioxide BUN Creatinine Estimated GFR BUN/Creatinine Ratio Glucose Hemoglobin A1c 5.3 Calcium Magnesium Triglycerides Cholesterol LDL Cholesterol, Calc HDL Cholesterol Procalcitonin 0.30 Nasal Screen MRSA (PCR) 11/22/19 11/22/19 11/22/19 05:15 05:38 05:38 WBC RBC Hgb Hct MCV MCH MCHC RDW Plt Count Neut % (Auto) Lymph % (Auto) [place] % (Auto) Eos % (Auto) Baso % (Auto) Neut # (Auto) Lymph # (Auto) [place] # (Auto) Eos # (Auto) Baso # (Auto) Sodium 138 Potassium 3.7 Chloride 103 Carbon Dioxide 26 BUN 12 Creatinine 0.90 Estimated GFR > 60.0 BUN/Creatinine Ratio 13.3 Glucose 104 Hemoglobin A1c Calcium 8.7 Magnesium 2.1 Triglycerides 86 Cholesterol 188 LDL Cholesterol, Calc 145 H HDL Cholesterol 26 L Procalcitonin 0.30 Nasal Screen MRSA (PCR) 11/22/19 14:41 WBC RBC Hgb Hct MCV MCH MCHC RDW Plt Count Neut % (Auto) Lymph % (Auto) [place] % (Auto) Eos % (Auto) Baso % (Auto) Neut # (Auto) Lymph # (Auto) [place] # (Auto) Eos # (Auto) Baso # (Auto) Sodium Potassium Chloride Carbon Dioxide BUN Creatinine Estimated GFR BUN/Creatinine Ratio Glucose Hemoglobin A1c Calcium Magnesium Triglycerides Cholesterol LDL Cholesterol, Calc HDL Cholesterol Procalcitonin Nasal Screen MRSA (PCR) Negative for mrsa Assessment & Plan Assessment and plan (1) Abscess of right foot: Problem details: Patient has a abscess of his right foot between the 4th and 5th metatarsals. This is growing Staph so far. The patient is on broad-spectrum antibiotics. He is scheduled to go down for a CT to quantify this. Due to the patient's non NPO status (was eating as I entered the room for the evaluation) I discussed a bedside drainage procedure to help decompress the abscess cavity while we wait for digestion and plan further operative debridement once the patient is NPO and it would be safer to proceed with anesthetic administration. The patient is not currently septic and his vital signs are stable therefore waiting for NPO status is appropriate but I did discuss if he has any acute worsening blisters ascending erythema then he would need to be taken emergently. The patient understands and agrees the planned and consents to bedside decompression. Therefore small scalpel was used to extend the small opening from the existing abscess and allow decompression manually of copious amount of valenzuela brown purulence material from the fourth-fifth web space. This was drains decompressed and packed and then wrapped in a soft dressing as the patient was getting ready to go down for CT scan. Patient did note immediate pain relief after the decompression. I discussed the patient will still need definitive surgery to further debride the area and may require several surgery is with an infection. Patient also understands that after the surgery he would have packing with wet to dry dressings and require wound care for secondary closure. Patient will also require appropriate IV antibiotics tailored for the organisms. The risks benefits and alternatives to surgery were discussed with the patient in detail and informed consent has been signed today. Risks include but are not limited to need for additional procedures, persistent pain, recurrent infection, nerve and vessel damage, need for more extensive surgery including amputation, DVT, pulmonary embolism, cardiac and pulmonary complications of general anesthesia up to and including stroke, paralysis and . The patient expressed understanding and Consent was signed. He has been added on for 1st case tomorrow. Current visit: Yes Status: Acute Assessment & Plan narrative: Bedside decompression followed by formal I&D when NPO. Continue IV antibiotics. Monitor symptoms. Time Spent With Patient Time with patient: 15-24 minutes
[2019-11-22 19:41] VITALS: BP 153/97; PULSE 98; RESP 18; TEMP 36.9; O2SAT 98
[2019-11-23] VITALS (14 sets, daily range): BP systolic 120–157; BP diastolic 70–103; PULSE 70–119; RESP 12–18; TEMP 36.1–37.4; O2SAT 93–100
[2019-11-23 07:05] LABS: Add Manual Diff / Slide Review NO; Basophils Absolute Auto 100 /uL (0-100); Basophils Percent Auto 0.5 % (0-2); Eosinophils Absolute Auto 500 /uL (0-450); Eosinophils Percent Auto 4.1 % (2-4); Hematocrit 41.2 % (41-53); Lymphocytes Absolute Auto 2300 /uL (1100-4500); Lymphocytes Percent Auto 17.4 % (25-40); Mean Corpuscular HGB Conc 34.1 % (30-36); Mean Corpuscular Hemoglobin 30.3 PG (26-34); Mean Corpuscular Volume 88.7 fL (80-100); Monocytes Absolute Auto 1400 /uL (0-900); Monocytes Percent Auto 10.6 % (3-14); Neutrophils Absolute Auto 8700 /uL (1500-7000); Neutrophils Percent Auto 67.4 % (50-75); Platelet Count 289 X10^3/uL (150-400); Red Blood Cell Count 4.64 X10^6/uL (4.5-5.9); Red Cell Distribution Width 13.3 % (11.6-14.8)
[2019-11-23 07:07] LABS: BUN Creatinine Ratio 15.6 (6-22); Blood Urea Nitrogen 14 mg/dL (9-20); Calcium 9.4 mg/dL (8.4-10.2); Carbon Dioxide 25 mmol/L (22-32); Chloride 102 mmol/L (98-107); Estimated Glomerular Filt Rate > 60.0 mL/min (>60); Glucose 96 mg/dL (80-110); HEMOLYSIS < 15 (0-50); Magnesium 2.2 mg/dL (1.6-2.3); Sodium 136 mmol/L (137-145)
--- NOTE | 2019-11-23 07:16 | PM.PREOP ---
Pre-operative Note Interval Note History & Physical reviewed/Exam performed by Physician: Yes Changes to H&P: No
[2019-11-23] MEDS: CEFTRIAXONE 2 GM/50 ML FROZ.PIGGY IV (07:50)
--- NOTE | 2019-11-23 08:10 | SUR.OPER ---
Supine on padded OR bed, head on pillow, arms secured on padded arm boards at <90 degrees abduction, legs uncrossed, safety belt at thigh, tape over blanket over left lower legs.
[2019-11-23] MEDS: BUPIVACAINE 0.25% W/ EPI (PF) 10 ML VIAL 20 ML INJ (08:18)
--- NOTE | 2019-11-23 08:47 | PM.OP.1 ---
Operative Date/Time/Diagnoses Date of procedure: 11/23/19 Time of procedure: 07:45 Pre-op diagnosis: Right foot dorsal abscess L02.611 Post-op diagnosis: same Procedure & Clinicians Procedure: Irrigation debridement right dorsal foot abscess between the 4th and 5th metatarsals. CPT code 57436 debridement of skin soft tissue and fascia Same procedure as scheduled: Yes Indications: The patient is a 69-year-old male that presents to the hospital with dorsal lateral foot cellulitis and abscess with purulence drainage. Unfortunately the patient was not NPO and had distally medially eaten on the orthopedic evaluation last night. A bedside drainage was performed that did drain copious purulence material. The patient was not otherwise septic so formal irrigation debridement was scheduled when the patient was appropriately in p.o. once a for anesthetic. Patient had been on empiric antibiotics and there was no ascending cellulitis. The risks benefits and alternatives to surgery discussed with the patient and his family in detail including but not limited to infection, need for additional procedures, damage to nerves and vessels, stiffness, scarring, need for amputation, persistent pain, DVT, pulmonary embolism, cardiac and pulmonary complications associated with general anesthesia including but not limited to stroke, paralysis, . Informed consent was signed. Surgeon: Florecita Corona Click Yes if Unassisted: Yes Anesthesia Type: General and Local (10 cc 0.25% Marcaine with epi local infiltration) Operative Notes Findings: Dorsal lateral foot abscess in the webspace between the 4th and 5th metatarsals at the level of the MTP joints. Abscess was dorsal. Did not go plantar to the transverse metatarsal ligament. Did track superficially dorsally over the 5th metatarsal predominantly and through a small connection with an opening through the dorsal skin over the proximal phalanx of the 5th toe. There is superficial skin slough in this area. Gross purulence was expressed and drained. No further proximal or plantar tracking of the abscess cavity. Wound at the end of the procedure was approximately 3 cm x 1 cm x 1 cm. This was packed with a wet to dry dressing Closure Type: not applicable Specimen(s): other (Cultures) Estimated Blood Loss (mL): 5 Blood products transfused: none Tourniquet time (min): 0 Procedure in detail: Patient was seen in the preoperative area the site of surgery was previously marked and confirmed. Consent was confirmed. The patient was brought back to the operating room by the anesthesia team. The patient was positioned supine on operative table. General anesthetic was administered. Bony prominences well padded. No tourniquet was used. The right foot was prepped and draped in standard sterile fashion with Betadine over the dorsal abscess. Formal time-out procedure was performed confirming the patient's side and site of surgery. The patient was on scheduled antibiotics. Attention was turned to the right dorsal foot there was a dorsal abscess with a small dorsal incision that was placed between the 4th and 5th toes near the level of the MTP joints. This was extended to about 3 cm in length running from the webspace along the interim metatarsal space. This was opened with a hemostatic cavity evacuated. There was tracking of the abscess dorsally over the 5th metatarsal at the level of the MTP joint but did not penetrate the capsule. There was a small pinhole tracking to a dorsal skin wound over the proximal phalanx of the 5th toe. The area was thoroughly irrigated with cysto tubing and 3 L of saline using manual and curette debridement followed by rongeur debridement a change of gloves and skin edge freshening. Once we were satisfied with complete evacuation of the abscess and debridement of the tissues of all nonviable tissue the foot was once again inspected for any signs of additional pockets or tracks. None were found. At this point gloves were changed and the wound was packed with a wet to dry saline gauze. Xeroform was placed on the area of desquamination. Then dry gauze and Kerlix and Onesimo wrap were placed. There is adequate capillary refill of all digits the end of the case. The 5th toe was predominantly affected and did sustain more desqaumination but had a 2-3 second capillary refill and good bleeding at the end of the case. Complications: none Post-operative Condition: stable Disposition: PACU Plan for aftercare: The patient will return to the floor for medical management. He will have nursing b.i.d. wet-to-dry dressing changes of the foot abscess starting on postoperative day 1. He will need of follow-up and continued dressing changes. Recommend consultation to the wound Care Clinic for this. Continue antibiotics based on cultures. Continue routine medical care. May weight bear as tolerated. Flatfoot or heel
--- NOTE | 2019-11-23 11:27 | PM.PN.1 ---
Subjective Subjective Date Patient Seen: 11/23/19 Interval history: Chidi Correa is a 69-year-old [place]og[place] male with a past medical history significant for hypertension and gout who presented with progressive worsening foot infection. Patient is resting comfortably in bed. He is now status post surgical irrigation and debridement of right foot abscess. He complains of mild pain in right foot that he rates a +5/10. He endorses hunger. He has no other complaints and denies headache, chest pain, shortness of breath, abdominal pain, nausea, vomiting, fever, chills, dysuria, diarrhea constipation. He is voiding and eliminating without difficulty. Exam Vital Signs (past 8 hours): - 11/23/19 06:00 11/23/19 07:22 11/23/19 08:34 Temperature 98.4 F 98.0 F 97.0 F L Pulse Rate 80 89 80 Respiratory Rate 16 16 15 Blood Pressure 145/82 H 148/85 H 127/75 Pulse Oximetry 98 97 95 11/23/19 08:40 11/23/19 08:45 11/23/19 08:50 Temperature Pulse Rate 80 75 79 Respiratory Rate 14 14 12 Blood Pressure 128/77 130/83 126/76 Pulse Oximetry 99 100 100 11/23/19 09:06 11/23/19 09:36 11/23/19 10:06 Temperature 97.4 F L Pulse Rate 76 70 72 Respiratory Rate 18 16 16 Blood Pressure 138/86 120/82 123/70 Pulse Oximetry 93 95 96 11/23/19 11:06 Temperature 97.6 F Pulse Rate 75 Respiratory Rate 16 Blood Pressure 134/78 Pulse Oximetry 98 Oxygen Delivery Method Simple Mask Oxygen Flow Rate 0 Narrative Exam Narrative: General: Older gentleman sitting in bed and in no acute distress, appears younger than stated age, well-developed, well-nourished, appropriately interactive. HEENT: Normocephalic, atraumatic. External ears without defect. Pupils equal, round, and reactive to light. Anicteric sclerae, moist conjunctivae, and no lid lag. Neck: Supple with full range of motion. No lymphadenopathy or thyromegaly. Cardiovascular: Regular rate and rhythm without murmurs, rubs, or gallops appreciated. Pulmonary: Clear to auscultation bilaterally without crackles, wheezes, or rhonchi. Normal respiratory effort with no use of accessory muscles. Abdomen: Soft, bowel sounds present, nontender, nondistended. No hepatosplenomegaly or masses appreciated. Extremities: No clubbing or cyanosis of bilateral lower extremities. Right foot surgical status post I&D with dressing in place C/D/I and intact distal pulses. Skin: Normal temperature, turgor, and texture; no rash, ulcers, or subcutaneous nodules appreciated. Neurological: Cranial nerves grossly intact. Psychiatric: Normal mood and affect. Alert and oriented to person, place, and time. Objective Labs Result Diagrams: 11/23/19 06:20 11/23/19 06:20 Labs: Laboratory Results - last 24 hr 11/22/19 11/23/19 11/23/19 14:41 06:20 06:20 WBC 13.0 H RBC 4.64 Hgb 14.0 Hct 41.2 MCV 88.7 MCH 30.3 MCHC 34.1 RDW 13.3 Plt Count 289 Neut % (Auto) 67.4 Lymph % (Auto) 17.4 L [place] % (Auto) 10.6 Eos % (Auto) 4.1 H Baso % (Auto) 0.5 Neut # (Auto) 8700 H Lymph # (Auto) 2300 [place] # (Auto) 1400 H Eos # (Auto) 500 H Baso # (Auto) 100 Sodium 136 L Potassium 4.0 Chloride 102 Carbon Dioxide 25 BUN 14 Creatinine 0.90 Estimated GFR > 60.0 BUN/Creatinine Ratio 15.6 Glucose 96 Calcium 9.4 Magnesium 2.2 Nasal Screen MRSA (PCR) Negative for mrsa Assessment & Plan Assessment & Plan narrative: Chidi Correa is a 69-year-old [place] male with a past medical history significant for hypertension and gout who presented with progressive worsening foot infection. 1. Acute right foot abscess with cellulitis, status post surgical I&D, present on admission. Resolving. -Patient presented after foot massage in the [facility] with progressive worsening right foot erythema, edema, and pain with associated fevers and chills. -Right foot x-ray did not demonstrate any acute fracture or dislocation. No definite radiographic evidence of osteomyelitis in right foot. No subcutaneous emphysema is seen. -Bilateral lower extremity Doppler ultrasound negative for DVT. -CT right lower extremity with contrast demonstrated -Blood cultures x2 have no growth to date. -Wound culture obtained in the ED grew MSSA. MRSA screen negative. Surgical wound culture pending. -Initial WBC 15.5 and procalcitonin 0.30. WBC trending down now 13.0 and procalcitonin stable at 0.30. Continue to trend WBC and procalcitonin daily. -ESR elevated at 70 and CRP elevated at 22.3. -Received vancomycin with dosing per pharmacist and ceftriaxone 2 g IV x1 in ED. Continue ceftriaxone 2 g IV daily and vancomycin with dosing per pharmacist pending surgical wound culture and if not growing any organisms tomorrow may discontinue. -Consulted orthopedic surgery, Dr. Corona, who performed surgical I&D. We appreciate her time and care of the patient. 2. Hypertension, chronic, present on admission. Stable. -Continue home amlodipine 10 mg daily and aspirin 81 mg daily. 3. Gout, chronic, present on admission. Stable. -Patient is not on uric acid lowering medication. -Ordered uric acid level, pending. 4. Diabetes mellitus ruled out. -Hemoglobin A1c 5.3%. Code status: Full code VTE Prophylaxis: Lovenox Disposition: Patient likely to discharge home in 1-2 days once right foot infection is resolving and will need close follow-up with outpatient wound care clinic. Quality VTE Deep Vein Thrombosis/Pulmonary Embolism Present on Admission: No
[2019-11-23] MEDS: AMLODIPINE 5 MG TABLET 10 MG PO (11:34)
[2019-11-23] MEDS: ENOXAPARIN 40 MG/0.4 ML SYRINGE SUBCUT (11:35)
[2019-11-23] MEDS: ASPIRIN EC 81 MG TABLET PO (11:35)
[2019-11-23] MEDS: OXYCODONE IR 5 MG TABLET PO ×3 (11:36→22:11)
[2019-11-23] MEDS: KETOROLAC 15 MG/ML VIAL IV (11:36)
[2019-11-23] MEDS: VANCOMYCIN 1,000 MG/200 ML PIGGYBACK 200 MG IV (11:54)
--- NOTE | 2019-11-23 14:49 | PC.NURSE ---
Assess-Pt back from surgery earlier, He has a dressing to his r.foot that is cdi after I&D done. Given oxycodone for pain along with some toradol. Which was helpful with discomfort. Pt is comfortable and eating well.
[2019-11-23 15:30] LABS: Uric Acid 5.6 mg/dL (3.5-8.5)
[2019-11-23 15:50] LABS: Procalcitonin 0.24 ng/mL (<0.5)
--- NOTE | 2019-11-23 16:38 | PT.IIE ---
Current Diagnoses Cutaneous abscess of right foot (11/21/19) Cellulitis of right lower limb (11/21/19) Surgery Performed Operation Date: 11/23/19 07:45 Actual Procedures p Incision and Drainage Wound/Extremity(Right) - Florecita Corona MD Medical History (Last Reviewed 11/22/19 @ 18:41 by Florecita Corona MD) Essential hypertension (Chronic) Gout (Acute) Gout (Chronic) History of CVA (cerebrovascular accident) (Acute) Physical Therapy Inpatient Evaluation/Re-Eval M1 PT/OT-IP Prior Functional Status Start: 11/23/19 17:02 Freq: NEEDED Status: Active Protocol: Document 11/23/19 16:38 AB (Rec: 11/23/19 17:26 AB [id number]) Medical Review Prior Functional Status Medical History Reviewed Yes Communication able to make needs known Mobility and Gait pt stated that he is independent with all mobilities and ambulation without AD Social History Household Members family Living Arrangements House Number of Floors (Floors) Two Floors Number of Stairs To Enter/Railing? pt stays on main level of the house 1 step to enter from the garage Home Environment Standard Height Toilet,Walk in Shower Home Equipment Front Wheel Walker,Straight Cane,Hand Held Shower Additional Social History Comment pt has family to assist him as needed but will not be there 24/7 M2 PT-IP Current Condition Start: 11/23/19 17:02 Freq: NEEDED Status: Active Protocol: Document 11/23/19 16:38 AB (Rec: 11/23/19 17:26 AB [id number]) Physical Therapy Current Condition Current Condition Evaluation Date 11/23/19 Treatment Diagnosis R foot abscess 4th and 5th metatarsal s/p I&D; difficulty in walking Onset Date 11/21/2019 Weight Bearing Status Weight Bearing Status Weight Bear as Tolerated Allowed Weight Bearing Amount (enter % RLE WBAT or #) (%) M3 PT-IP Subjective Start: 11/23/19 17:02 Freq: NEEDED Status: Active Protocol: Document 11/23/19 16:38 AB (Rec: 11/23/19 17:26 AB [id number]) Subjective Physical Therapy Visit Type Type Initial Evaluation Visit Start Time 16:38 Visit Stop Time 16:58 Total Visit Minutes 20 Number of HELPDESK ADMINISTRATOR Visits 0 Physical Therapy Visit Comments Patient Comments pt agreeable to do PT Therapy Pain Assessment Pain When Pain Assessed At Rest Pain Present Pain Present Pain Reported Location Right Upper Lateral Foot Intensity 4 M4 PT-IP Mobility and Gait Start: 11/23/19 17:02 Freq: NEEDED Status: Active Protocol: Document 11/23/19 16:38 AB (Rec: 11/23/19 17:26 AB [id number]) PT-Bed Mobility Assessment Supine to Sit Supine to Sit Independent Sit to Supine Sit to Supine Independent Scooting Scooting to Edge of Bed Independent Scooting Up and Down in Bed Independent PT-Transfer Assessment Sit to and From Stand Sit to and from Stand Standby Assistance Equipment Transfer Assistive Device None,Gait Belt Orthotic/Prosthetic Devices or Brace: No Comments Mobility Comments pt supine in bed. c/o 4/10 pain. agreed to get up. pt is impulsive. completed supine to sit independent. ambulated in room without AD SBA. presents with antalgic gait . educated on safety and use of FWW and pt agreed. pt ambulated in room using FWW SBA. pt requested to back to bed completed sit to supine independent. positioned pt on the bed. call light and table placed within reach. Gait Assessment Gait Gait Assistance Required: Standby Assistance Distance (Feet) 30 Able to Maintain Weight Bearing Status Yes During Gait Assistive Devices Assistive Device None,Gait Belt,Front Wheeled Walker Orthotic/Prosthetic Devices or Brace: No Gait Deviations General Gait Pattern Antalgic,Decreased Stride Length,Decreased Feet Clearance Factors Limiting Gait Function Factors Limiting Gait Function Pain,Poor Balance,Poor Safety Awareness Comments Gait Comments pt initially ambulated without AD ~ 10 ft. presents with antalgic gait. pt educated on safety and wound healing on RLE and recommendation of using FWW. pt agreed. pt ambulated in room using FWW SBA ~ 30 ft. pt stated that walking is better with FWW. PT-Balance Assessment Sitting Balance and Reactions Static Sitting Balance Ability Normal Dynamic Sitting Balance Ability Normal Standing Balance and Reactions Static Standing Balance Ability Good Dynamic Standing Balance Ability Fair Device Used without AD M5 PT-IP Objective Assessments Start: 11/23/19 17:02 Freq: NEEDED Status: Active Protocol: Document 11/23/19 16:38 AB (Rec: 11/23/19 17:26 AB [id number]) Orientation Orientation/Cognition Level of Alertness Alert Orientation Name,Place,Situation Safety Awareness Decreased Safety Awareness Memory Description No Deficits Noted Gross Range of Motion Lower Extremity ROM Assessment Within Functional Limits Strength Lower Extremity Strength Hip 4/5 Knee 4/5 Ankle R ankle with dressing on: NT Coordination Assessment Gross Coordination Gross Coordination WNL Muscle Tone Muscle Tone WNL Yes M6 PT-IP Treatment Start: 11/23/19 17:02 Freq: NEEDED Status: Active Protocol: Document 11/23/19 16:38 AB (Rec: 11/23/19 17:26 AB [id number]) Physical Therapy Treatment Education Education Provided Weight Bearing Status,Safety M7 PT-IP Assessment and Plan Start: 11/23/19 17:02 Freq: NEEDED Status: Active Protocol: Document 11/23/19 16:38 AB (Rec: 11/23/19 17:26 AB [id number]) PT Summary Assessment and Plan Potential Rehabilitation Potential Good Status of Condition at Evaluation Stable Summary Impairments Pain,ROM,Strength,Balance, Coordination,Sensation,Bed Mobility,Transfers,Gait, Activity Tolerance Assessment Summary pt requiring SBA with mobility . recommending use of FWW at this time for safety. pt plans to go home with family to assist. will complete stair climbing training prior to d/c. Goals Transfer Goal Independent,Front Wheeled Walker Gait Goal Independent,Front Wheel Walker Gait Distance 200 Other Goals up/down 1 step using FWW SBA Days to Meet Goals 3 Frequency of Treatment Frequency Of Treatment Once a Day Treatment Plan Physical Therapy Treatment Plan Bed Mobility Training,Transfer Training,Gait Training, Therapeutic Exercise,Balance Retraining,Post Op Education, Discharge Planning,Hot or Cold Pack,Neuromuscular Re-ed, Coordination Retraining,Manual Therapy Recommendations To Nursing Amount of Assist Needed Standby Assistance Discharge Recommendations PT Discharge Recommendations Home with Assistance
[2019-11-23 23:24] LABS: Vancomycin Trough 8.2 ug/mL (10-20)
[2019-11-24] MEDS: VANCOMYCIN 1,000 MG/200 ML PIGGYBACK 200 MG IV (00:27)
[2019-11-24] MEDS: SODIUM CHLORIDE 0.9% FLUSH 10 ML IV ×2 (00:28→09:23)
[2019-11-24] MEDS: VANCOMYCIN TROUGH 1 REQUEST MISC (00:37)
[2019-11-24] MEDS: OXYCODONE IR 5 MG TABLET PO ×2 (01:50→15:03)
[2019-11-24 05:00] VITALS: BP 149/90; PULSE 78; RESP 18; TEMP 37; O2SAT 95
[2019-11-24 05:25] LABS: Add Manual Diff / Slide Review NO; Basophils Absolute Auto 100 /uL (0-100); Basophils Percent Auto 0.7 % (0-2); Eosinophils Absolute Auto 700 /uL (0-450); Hematocrit 37.9 % (41-53); Hemoglobin 13.2 g/dL (13.5-17.5); Lymphocytes Absolute Auto 2000 /uL (1100-4500); Lymphocytes Percent Auto 18.5 % (25-40); Mean Corpuscular HGB Conc 34.7 % (30-36); Mean Corpuscular Hemoglobin 30.7 PG (26-34); Mean Corpuscular Volume 88.3 fL (80-100); Monocytes Absolute Auto 1200 /uL (0-900); Monocytes Percent Auto 10.8 % (3-14); Neutrophils Absolute Auto 7000 /uL (1500-7000); Platelet Count 287 X10^3/uL (150-400); Red Blood Cell Count 4.29 X10^6/uL (4.5-5.9); Red Cell Distribution Width 13.3 % (11.6-14.8)
[2019-11-24 06:09] LABS: Procalcitonin 0.16 ng/mL (<0.5)
[2019-11-24 07:17] VITALS: BP 143/87; PULSE 80; RESP 16; TEMP 37; O2SAT 97
--- NOTE | 2019-11-24 09:05 | PT.IPTN ---
Current Diagnoses Cutaneous abscess of right foot (11/21/19) Cellulitis of right lower limb (11/21/19) Surgery Performed Operation Date: 11/23/19 07:45 Actual Procedures p Incision and Drainage Wound/Extremity(Right) - Florecita Corona MD Physical Therapy Treatment Note M2 PT-IP Current Condition Start: 11/23/19 17:02 Freq: NEEDED Status: Active Protocol: Document 11/23/19 16:38 AB (Rec: 11/23/19 17:26 AB [id number]) Physical Therapy Current Condition Current Condition Evaluation Date 11/23/19 Treatment Diagnosis R foot abscess 4th and 5th metatarsal s/p I&D; difficulty in walking Onset Date 11/21/2019 Weight Bearing Status Weight Bearing Status Weight Bear as Tolerated Allowed Weight Bearing Amount (enter % RLE WBAT or #) (%) M3 PT-IP Subjective Start: 11/23/19 17:02 Freq: NEEDED Status: Active Protocol: Document 11/24/19 09:05 AB (Rec: 11/24/19 10:27 AB [id number]) Subjective Physical Therapy Visit Type Type Treatment Note Visit Start Time 09:05 Visit Stop Time 09:15 Total Visit Minutes 10 Number of NURSE CASE MANAGER Visits 0 Physical Therapy Visit Comments Patient Comments pt agreeable to do PT Therapy Pain Assessment Pain Present Pain Present Denied Pain M4 PT-IP Mobility and Gait Start: 11/23/19 17:02 Freq: NEEDED Status: Active Protocol: Document 11/24/19 09:05 AB (Rec: 11/24/19 10:27 AB [id number]) PT-Bed Mobility Assessment Supine to Sit Supine to Sit Independent PT-Transfer Assessment Sit to and From Stand Sit to and from Stand Standby Assistance,1 Person Assistance Equipment Transfer Assistive Device Gait Belt,Front Wheeled Walker Gait Assessment Gait Gait Assistance Required: Standby Assistance Distance (Feet) 250 Able to Maintain Weight Bearing Status Yes During Gait Assistive Devices Assistive Device Gait Belt,Front Wheeled Walker Orthotic/Prosthetic Devices or Brace: No Gait Deviations General Gait Pattern Antalgic Factors Limiting Gait Function Factors Limiting Gait Function Poor Balance,Poor Safety Awareness Comments Gait Comments pt is impulsive. agreed to do ambulation and stair climbing . completed bed mobilty independent. sit to stand SBA and ambulation using FWW SBA ~ 250 ft. pt then completed up/down step. ambulated back to his room using FWW SBA. pt sat on the EOB. nurse in room and took over. Stair Climbing Assessment Evaluation Level of Assist On Stairs Standby Assistance Devices Stair Climbing Assistive Devices Front Wheel Walker Technique/Endurance Stair Climbing Direction Ascend and Descend Stair Climbing Technique Step to Step Number of Steps Climbed 1 Stair Climbing Set # Repetitions (reps) 2 M5 PT-IP Objective Assessments Start: 11/23/19 17:02 Freq: NEEDED Status: Active Protocol: Document 11/23/19 16:38 AB (Rec: 11/23/19 17:26 AB [id number]) Orientation Orientation/Cognition Level of Alertness Alert Orientation Name,Place,Situation Safety Awareness Decreased Safety Awareness Memory Description No Deficits Noted Gross Range of Motion Lower Extremity ROM Assessment Within Functional Limits Strength Lower Extremity Strength Hip 4/5 Knee 4/5 Ankle R ankle with dressing on: NT Coordination Assessment Gross Coordination Gross Coordination WNL Muscle Tone Muscle Tone WNL Yes M6 PT-IP Treatment Start: 11/23/19 17:02 Freq: NEEDED Status: Active Protocol: Document 11/24/19 09:05 AB (Rec: 11/24/19 10:27 AB [id number]) Physical Therapy Treatment Education Education Provided Precautions,Safety M7 PT-IP Assessment and Plan Start: 11/23/19 17:02 Freq: NEEDED Status: Active Protocol: Document 11/24/19 09:05 AB (Rec: 11/24/19 10:27 AB [id number]) PT Summary Assessment and Plan Potential Rehabilitation Potential Good Summary Impairments Pain,ROM,Strength,Balance, Coordination,Sensation, Transfers,Gait,Activity Tolerance Progress Towards Goals Progressing Toward Goals Assessment Summary pt is doing well with mobility and requiring SBA using FWW for safety. pt may go home when medically stable. Goals Transfer Goal Independent,Front Wheeled Walker Gait Goal Independent,Front Wheel Walker Gait Distance 200 Other Goals up/down 1 step using FWW SBA Days to Meet Goals 3 Frequency of Treatment Frequency Of Treatment Once a Day Treatment Plan Physical Therapy Treatment Plan Bed Mobility Training,Transfer Training,Gait Training, Therapeutic Exercise,Balance Retraining,Post Op Education, Discharge Planning,Hot or Cold Pack,Neuromuscular Re-ed, Coordination Retraining,Manual Therapy Recommendations To Nursing Amount of Assist Needed Standby Assistance Discharge Recommendations PT Discharge Recommendations Home with Assistance
[2019-11-24] MEDS: AMLODIPINE 5 MG TABLET 10 MG PO (09:23)
[2019-11-24] MEDS: ASPIRIN EC 81 MG TABLET PO (09:23)
[2019-11-24] MEDS: ENOXAPARIN 40 MG/0.4 ML SYRINGE SUBCUT (09:23)
[2019-11-24 11:07] VITALS: BP 134/79; PULSE 87; RESP 16; TEMP 36.8; O2SAT 95
--- NOTE | 2019-11-24 14:49 | PC.NURSE ---
Day shift PIV was leaking this AM, called [employer] to assess as well and no veins located by palpation or with vein finder. Called Dr Corona to see if ok to leave PIV out and switch to PO Abx, heard from PA around 1230 that wants IV placed. Notified DI RN and he states he has busy afternoon, will be up when he can. PA and Dr Henderson aware and ok with delay in abx administration. Dressing changed wet to dry according to orders. Pt tolerated ok, requested pain medication after dressing change which was supplied to pt.
[2019-11-24 15:55] VITALS: BP 150/94; PULSE 101; RESP 17; TEMP 36.7; O2SAT 95
--- NOTE | 2019-11-24 16:15 | P.PN_ITS ---
Subjective Subjective Date Patient Seen: 11/24/19 Time Patient Seen: 16:16 Interval history: Chidi Correa is a 69-year-old [place] male with a past medical history significant for hypertension and gout who presented with progressive worsening foot infection. Patient is resting comfortably in bed. He is now status post surgical irrigation and debridement of right foot abscess. He complains of mild pain in right foot that is slowly improving. He has no other complaints and denies headache, chest pain, shortness of breath, abdominal pain, nausea, vomiting, fever, chills, dysuria, diarrhea constipation. He is voiding and eliminating without difficulty. Exam Vital Signs (past 8 hours): - 11/24/19 11:07 11/24/19 15:55 Temperature 98.3 F 98.1 F Pulse Rate 87 101 H Respiratory Rate 16 17 Blood Pressure 134/79 150/94 H Pulse Oximetry 95 95 Oxygen Delivery Method Simple Mask Oxygen Flow Rate 0 Narrative Exam Narrative: General: Older gentleman sitting in bed and in no acute distress, appears younger than stated age, well-developed, well-nourished, appropriately interactive. HEENT: Normocephalic, atraumatic. External ears without defect. Pupils equal, round, and reactive to light. Anicteric sclerae, moist conjunctivae, and no lid lag. Neck: Supple with full range of motion. No lymphadenopathy or thyromegaly. Cardiovascular: Regular rate and rhythm without murmurs, rubs, or gallops appreciated. Pulmonary: Clear to auscultation bilaterally without crackles, wheezes, or rhonchi. Normal respiratory effort with no use of accessory muscles. Abdomen: Soft, bowel sounds present, nontender, nondistended. No hepatosplenomegaly or masses appreciated. Extremities: No clubbing or cyanosis of bilateral lower extremities. Right foot surgical status post I&D with dressing in place C/D/I and intact distal pulses. Skin: Normal temperature, turgor, and texture; no rash, ulcers, or subcutaneous nodules appreciated. Neurological: Cranial nerves grossly intact. He has a notable limp favoring his left side. Psychiatric: Normal mood and affect. Alert and oriented to person, place, and time. Objective Labs Result Diagrams: 11/24/19 05:00 11/23/19 06:20 Labs: Laboratory Results - last 24 hr 01/11/24/19 11/24/19 22:30 05:00 05:00 WBC 11.0 RBC 4.29 L Hgb 13.2 L Hct 37.9 L MCV 88.3 MCH 30.7 MCHC 34.7 RDW 13.3 Plt Count 287 Neut % (Auto) 64.0 Lymph % (Auto) 18.5 L [place] % (Auto) 10.8 Eos % (Auto) 6.0 H Baso % (Auto) 0.7 Neut # (Auto) 7000 Lymph # (Auto) 2000 [place] # (Auto) 1200 H Eos # (Auto) 700 H Baso # (Auto) 100 Procalcitonin 0.16 Vancomycin Trough 8.2 L Assessment & Plan Assessment & Plan narrative: Chidi Correa is a 69-year-old [place] male with a past medical history significant for hypertension and gout who presented with progressive worsening foot infection. 1. Acute right foot abscess with cellulitis, status post surgical I&D, present on admission. Resolving. -Patient presented after foot massage in the [facility] with progressive worsening right foot erythema, edema, and pain with associated fevers and chills. -Right foot x-ray did not demonstrate any acute fracture or dislocation. No definite radiographic evidence of osteomyelitis in right foot. No subcutaneous emphysema is seen. -Bilateral lower extremity Doppler ultrasound negative for DVT. -CT right lower extremity with contrast demonstrated -Blood cultures x2 have no growth to date. -Wound culture obtained in the ED grew MSSA. MRSA screen negative. Surgical wound culture pending. -Initial WBC 15.5 and procalcitonin 0.30. WBC trending down now 13.0 and procalcitonin stable at 0.30. Continue to trend WBC and procalcitonin daily. -ESR elevated at 70 and CRP elevated at 22.3. -Received vancomycin with dosing per pharmacist and ceftriaxone 2 g IV x1 in ED. Continue ceftriaxone 2 g IV daily and vancomycin with dosing per pharmacist pending surgical wound culture which is growing staph aureus, with sensitivities pending. -Consulted orthopedic surgery, Dr. Corona, who performed surgical I&D. We appreciate her time and care of the patient. 2. Hypertension, chronic, present on admission. Stable. -Continue home amlodipine 10 mg daily and aspirin 81 mg daily. 3. Gout, chronic, present on admission. Stable. -Patient is not on uric acid lowering medication. -uric acid level is normal at 5.6. 4. Diabetes mellitus ruled out. -Hemoglobin A1c 5.3%. Code status: Full code VTE Prophylaxis: Lovenox Disposition: Patient likely to discharge home in 1-2 days once right foot infection is resolving an operative cultures are finalized and will need close follow-up with outpatient wound care clinic. Anticipate discharge tomorrow. Quality VTE Deep Vein Thrombosis/Pulmonary Embolism Present on Admission: No
[2019-11-24] MEDS: CEFTRIAXONE 2 GM/50 ML FROZ.PIGGY IV (16:17)
[2019-11-24] MEDS: VANCOMYCIN 1,250 MG in SODIUM CHLORIDE 0.9% 250 ML IV (17:08)
[2019-11-24 19:20] VITALS: BP 145/87; PULSE 81; RESP 17; TEMP 36.9; O2SAT 99
[2019-11-24 23:50] VITALS: BP 154/96; PULSE 82; RESP 18; TEMP 36.7; O2SAT 94
[2019-11-25] MEDS: OXYCODONE IR 5 MG TABLET PO ×2 (00:04→08:41)
[2019-11-25] MEDS: VANCOMYCIN 1,250 MG in SODIUM CHLORIDE 0.9% 250 ML IV ×2 (00:05→08:41)
[2019-11-25 06:00] VITALS: BP 136/86; PULSE 72; RESP 18; TEMP 37; O2SAT 97
--- NOTE | 2019-11-25 07:59 | PM.PNPO.1 ---
Subjective Subjective Date Patient Seen: 11/25/19 Time Patient Seen: 07:59 Interval history: POD R foot I&D for dorsal abscess. doing well no complaints. tolerated bid WTD dsg changes yesterday. culture staph resistant to bactrim. currently on IV ceftriaxone/vanc Exam Vital Signs (past 8 hours): - 11/25/19 06:00 Temperature 98.6 F Pulse Rate 72 Respiratory Rate 18 Blood Pressure 136/86 Pulse Oximetry 97 Oxygen Delivery Method Simple Mask Oxygen Flow Rate 0 Narrative Exam Narrative: gen. A&O NAD pain controlled HEENT: NCAT resp unlabored on RA CV: RRR MSK: RLE: dsg changed WTD packing. wound cavity 4-5 intermt space with good red granulation tissue, no purulence no fluctuance. cellulitis resolved. calf soft Objective Labs Result Diagrams: 11/24/19 05:00 11/23/19 06:20 Assessment & Plan Post-op Assessment and plan (1) Abscess of right foot: Postoperative Procedures: Procedures Operation Date: 11/23/19 07:45 Actual Procedures Side Surgeon p Incision and Drainage Wound/Extremity Right Florecita Corona MD POD 2 doing well. no further surgery indicated. continue BID WTD dsg changes with nursing-- rec wound care for wound management at d/c cam do WTD or vac per wound care preference. abx per primary. carn follow with ortho as needed Quality VTE Deep Vein Thrombosis/Pulmonary Embolism Present on Admission: No
[2019-11-25 08:03] VITALS: BP 145/92; PULSE 79; RESP 16; TEMP 36.7; O2SAT 97
[2019-11-25] MEDS: SODIUM CHLORIDE 0.9% FLUSH 10 ML IV ×2 (08:41→10:25)
[2019-11-25] MEDS: ASPIRIN EC 81 MG TABLET PO (08:42)
[2019-11-25] MEDS: ENOXAPARIN 40 MG/0.4 ML SYRINGE SUBCUT (08:42)
[2019-11-25] MEDS: AMLODIPINE 5 MG TABLET 10 MG PO (08:42)
--- NOTE | 2019-11-25 10:50 | P.DS_ITS ---
History of Present Illness History of Present Illness Date Patient Seen: 11/25/19 Time Patient Seen: 08:00 Chief complaint: SWELLING OF FEET Narrative: As per PABLO Contreras: Sunny is a 69 y.o. [place] male with history of hypertension and gout presented with a chief complaint of a sore and swollen foot. He is a difficult historian due to a language barrier and LucreciaCARLA and his niece and nephew assist in providing a history. Patient was in the [facility] when a week prior to arrival, he was scratching his right foot. Approximately a week later while still [place], he developed chills. He departed on a flight to the and had his foot in the aisle when a passenger stepped on his foot. He and his family members put an over the counter antibiotic ointment on it and when it did not improve, he presented to the ED. He denies current fever or chills, headache, shortness of breath, chest pain, nausea or vomiting, abdominal pain, dysuria, diarrhea, constipation or numbing or tingling of his extremities. He does state he has full sensation of the bottoms of his feet. Patient has been travelling from [place], the [facility] to and from the [facility] and had a PCP from [facility]. He takes amlodipine and it is not clear if he was prescribed it from either [place] or the [facility]. Discharge Providers Provider Date of admission: 11/21/19 17:44 Discharge Date: 11/25/19 Consults: 11/22/19 16:26 Consult to General Surgery Routine Comment: Consulting Provider: Lalo Dye Reason for consultation: R foot infection Has provider been notified: Yes 11/22/19 17:52 Consult to Orthopedic Surgery Routine Comment: Consulting Provider: Florecita Corona Reason for consultation: foot abscess Has provider been notified: Yes 11/23/19 15:02 Consult to Physical Therapy Evaluate & Treat Comment: Physician Instructions: Evaluate and Treat Discharge provider: Nathan Henderson DO Summary Hospital Course Discharge Diagnosis: 1. Acute right foot abscess with cellulitis, status post surgical I&D, present on admission. Resolving. 2. Hypertension, chronic, present on admission. Stable. 3. Gout, chronic, present on admission. Stable. 4. Diabetes mellitus ruled out. Hospital Course: Chidi Correa is a 69-year-old Israeli male with a past medical history significant for hypertension and gout who presented with progressive worsening foot infection. He underent surgical I&D with orthopedics. CT scan showed possible evidence of osteomyelitis, and given a number of factors patient was discharged on 6 weeks of oral antibiotics. 1. Acute right foot abscess with cellulitis, status post surgical I&D, present on admission. Resolving. -Patient presented after foot massage in the [facility] with progressive worsening right foot erythema, edema, and pain with associated fevers and chills. -Right foot x-ray did not demonstrate any acute fracture or dislocation. No definite radiographic evidence of osteomyelitis in right foot. No subcutaneous emphysema was seen. -Bilateral lower extremity Doppler ultrasound negative for DVT. -CT right lower extremity with contrast demonstrated a fluid collection along the dorsal aspect of the lateral and distal forefoot, mainly overlying the fifth metatarsal phalangeal joint extending between the fourth and fifth digit webspace and a fluid collection concerning for abscess and questionable, subtle cortical thinning along the dorsal aspect of the fifth proximal phalanx but no other signs of osteomyelitis. -Wound culture obtained in the ED grew MSSA. MRSA screen negative. Surgical wound culture pending. -Initial WBC 15.5 and procalcitonin 0.30. WBC trending down now 13.0 and procalcitonin stable at 0.30. Continue to trend WBC and procalcitonin daily. -ESR elevated at 70 and CRP elevated at 22.3. -Received vancomycin with dosing per pharmacist and ceftriaxone 2 g IV x1 in ED. Continued ceftriaxoned 2 g IV daily and vancomycin with dosing per pharmacist pending surgical wound culture which grew MSSA ultimately. Given a number of factors, including lack of regular PCP, cortical changes as noted above, and possible but unlikely osteomyelitis he was discharged on 6 weeks of oral antibiotics as there is evidence that an oral regimen is just as effective as IV in select patients. 2. Hypertension, chronic, present on admission. Stable. -Continue home amlodipine 10 mg daily and aspirin 81 mg daily. 3. Gout, chronic, present on admission. Stable. -Patient is not on uric acid lowering medication. -uric acid level is normal at 5.6. 4. Diabetes mellitus ruled out. -Hemoglobin A1c 5.3%. Dispo: patient was discharged home. He was offered PCP referral and wound care referral, however he plans on travelling to [place] soon and states he will follow up there. He was given prescriptions for dressing changes as well as or antibiotics as noted above. Time Spent with Patient Time spent: Greater than 30 minutes Exam Vital Signs (past 8 hours): - 11/25/19 06:00 11/25/19 08:03 Temperature 98.6 F 98.0 F Pulse Rate 72 79 Respiratory Rate 18 16 Blood Pressure 136/86 145/92 H Pulse Oximetry 97 97 Oxygen Delivery Method Room Air Oxygen Flow Rate 0 Narrative Exam Narrative: General: Older gentleman sitting in bed and in no acute distress, appears younger than stated age, well-developed, well-nourished, appropriately interactive. HEENT: Normocephalic, atraumatic. External ears without defect. Pupils equal, round, and reactive to light. Anicteric sclerae, moist conjunctivae, and no lid lag. Neck: Supple with full range of motion. No lymphadenopathy or thyromegaly. Cardiovascular: Regular rate and rhythm without murmurs, rubs, or gallops appreciated. Pulmonary: Clear to auscultation bilaterally without crackles, wheezes, or rhonchi. Normal respiratory effort with no use of accessory muscles. Abdomen: Soft, bowel sounds present, nontender, nondistended. No hepatosp lenomegaly or masses appreciated. Extremities: No clubbing or cyanosis of bilateral lower extremities. Right foot surgical status post I&D with dressing in place C/D/I and intact distal pulses. Skin: Normal temperature, turgor, and texture; no rash, ulcers, or subcutaneous nodules appreciated. Neurological: Cranial nerves grossly intact. He has a notable limp favoring his left side. Psychiatric: Normal mood and affect. Alert and oriented to person, place, and time. Objective Labs Result Diagrams: 11/24/19 05:00 11/23/19 06:20 Discharge Plan Discharge Plan Patient Disposition: Home Discharge comment: You were admitted to the hospital with an infection of your R foot. You could possibly have an infection in your bone however this is unclear. Given your situation, it is reasonable to treat with oral antibiotics for 6 weeks, but this may need to continue possibly longer. Please follow up a primary care provider when you can. You are being provided with a wound care clinic refe rral, if you are no longer in this state it is recommended that you get to a provider as quickly as possible after moving to evaluate. Discharge orders & Medications Prescriptions: New dicloxacillin 500 mg capsule 500 mg PO QID 42 Days Qty: 168 RF: 0 (DME) Xeroform 5 X 9 bandage See Rx Instructions .ROUTE .MEDSUPPLY Qty: 50 RF: 1 (DME) gauze bandage 1 X 10 -yard bandage See Rx Instructions .ROUTE .MEDSUPPLY Qty: 24 RF: 0 (DME) gauze bandage 4 X 4 bandage See Rx Instructions .ROUTE .MEDSUPPLY Qty: 150 RF: 0 Continued aspirin 81 mg Tablet,Delayed Release (Dr/Ec) 81 mg PO DAILY Qty: 0 RF: 0 amlodipine 10 mg Tablet 10 mg PO DAILY RF: 0 vitamin B complex Capsule 1 cap PO DAILY RF: 0 ascorbic acid (vitamin C) 1 tab PO DAILY RF: 0 vitamin E 1 cap PO DAILY RF: 0 Follow up/Referrals: Florecita Corona MD [Physician] - 12/13/19 10:40 am (Dr. Corona performed an Irrigation and debridement of your Right Dorsal Foot on November 23, 2019. Follow up in office as needed. I did make an appointment for you for December 13 at 10:40, please check in 15-20 minutes prior to this appointment. Appointment is at [address] [place] [address]. ) Discharge Health Status Multidrug resistant organism: No MDRO Diet/Activity/Treatments Diet: Diet as Tolerated Activity: As tolerated Skin/Wound/Dressing Care Dressing: As directed by orthopedic surgery. Visit Report/Discharge Packet Instructions: DI for Debridement of a Wound, Infection, or Burn, DI for Postoperative Pain, How to Change a Wet-to-dry Wound Dressing, How to Use Antibiotics Wisely, [facility]: Wound Care Discharges patient from system. Discharge Date/Time: 11/25/19 15:39 Quality VTE Deep Vein Thrombosis/Pulmonary Embolism Present on Admission: No
[2019-11-25 11:58] VITALS: BP 128/79; PULSE 69; RESP 16; TEMP 36.9; O2SAT 98
--- NOTE | 2019-11-25 14:59 | CM.DPC ---
DCP: continued: case again received and last few days EMR are reviewed. Discussed in Team Rounds with Dr. Henderson stating he anticipated sending pt home today. He confirmed pt would be on oral antibiotics but wondering about wound care management. Pt is currently on 2x day dressing changes with some packing after an I&D by Dr. Farnsworth/Baldomero orthopedic team. Have conferred now a few times with Dr. Henderson, RUFINO Harden, pt and his 19 year old grandson, at bedside. Pt does have Medicare and thus would be eligible for a snf sty IF wound management dictated same. Care team members and pt do not think this will be needed. Pt is unable to have HH services as he has no PCP and does not stay in one place long enough for same. He can access the [facility] clinic. He and his grandson do both confirm that pt has NOT been [facility] by [facility] (Dr. Henderson notes that their had been some confusion re this and he has been updated.). Pt and his grandson have now conferred by phone with other family members who are currently at work. Plan is now to teach grandson what is needed for the wound care and Dr. Henderson will advise pt to follow up with Dr. Farnsworth to check on wound as an outpt. RUFINO Harden is teaching the wound care to pt and grandson and will send pt home with some supplies as well as make sure he has scripts for what is needed. Will follow prn.. Home today as per above plan.
--- NOTE | 2019-11-25 15:39 | PC.NURSE ---
Day Shift- Dr. Corona performed right foot dressing this morning. Xerform gauze left in place, wound packing changed. Pt tolerated well. Pt very good with keeping Right foot elevated on pillows. At 1410. right foot dressing changed performed with pt's son MISHA and another family member, pt's nephew at bedside as well who stated he had to change his 's wound. Right foot dressing removed. Instructed pt and his son EG on wound irrigation. Xerform can stay in place unless moist, then needs to be changed, may peel back xerform to assess skin. Assess for signs and symptoms of infection. EG stated he will be performing dressing changed twice daily when at home per Dr. Corona's verbal order. Aware may need to change as needed if dressing saturated. Educated on, moist gauze wound packing which was performed by EG with this RN instruction and observation. Placed several 4X4 gauze over top for wet to dry dressing and secured with kerlix and paper tape. Sock placed over dressing. pt tolerated well. Instructed EG that he and pt will be given step by step instructions on discharge paperwork as to how to change dressing. EG stated he could perform this dressing change at home for pt. Aware to potato picker antibiotic prescription at [facility]. Prescriptions for dressing change supply will be given to pt by Evening sweta RN, pt and son aware that this supply is available over the counter also, may ask pharmacy where to find in store. Aware to get normal saline solution from pharmacy store and ask pharmacist if needing help to locate. Some dressing supplies given for supply over weekend and pt aware will need to buy from then on. Post op appointment made with Dr. Corona's office per recommendations by Dr. Henderson and planner Irene. Appointment made for Dec 13, pt has plans to fly to [place] for the weekend of the to visit his daughter. Pt plans to change appointment for an earlier date. Pt states has all his belongings, RANDY midline removed without difficulty, folded 2X2 gauze applied over site, surrounding skin cleansed with alohol swab, and tegaderm applied. No further voiced concerns, pt and his son stated they have an understanding of dressing changes. Discharge paperwork to be reviewed with Sweta Velez.
== END 2019-11-25 15:39 | disposition home or self-care (01) | DRG 571 ==
LOC: ED 17:44 → AC 17:45
PROVIDERS: Nurse Practitioner Family; Nurse Practitioner Gerontology; Orthopaedic Surgery Foot and Ankle Surgery; Admitting Provider Internal Medicine; Emergency Provider Nurse Practitioner; Visit Provider Internal Medicine
PROC: 0JBQ0ZZ Excision of Right Foot Subcutaneous Tissue and Fascia, Open Approach (ICD-10-PCS; principal; 2019-11-23 07:45)
DX: L03.115 Cellulitis of right lower limb (principal); Z16.29 Resistance to other single specified antibiotic; L02.611 Cutaneous abscess of right foot; B95.61 Methicillin susceptible Staphylococcus aureus infection as the cause of diseases classified elsewhere; I10 Essential (primary) hypertension; R73.9 Hyperglycemia, unspecified; S97.81XA Crushing injury of right foot, initial encounter; X58.XXXA Exposure to other specified factors, initial encounter; Y92.813 Airplane as the place of occurrence of the external cause; Z23 Encounter for immunization
CPT/HCPCS: 36415; 73630; 73701; 80048; 80053; 80061; 80202; 81003; 83036; 83605; 83690; 83735; 84145; 84550; 85025; 85610; 85651; 85730; 86140; 87040; 87070; 87075; 87077; 87147; 87186; 87205; 87797; 90471; 90656; 93005; 93010; 93970; 96365; 96375; 97116; 97161; 99285; J0696; J1642; J1650; J1885; J2250; J2270; J2405; J2704; J3010; J7050; Q2038; Q9967